=== PATIENT | male | born 1940 | race Caucasian/White ===

== ENCOUNTER 2019-07-28 14:46 | Outpatient (CLI) | payer MEDICARE, OTHER, SELFPAY | END 2019-07-28 14:47 | disposition home or self-care (01) | PROVIDERS: PCP Internal Medicine; Visit Provider Specialist | DX: C44.629 Squamous cell carcinoma of skin of left upper limb, including shoulder (principal) | CPT/HCPCS: 88305 ==

== ENCOUNTER 2020-11-22 09:14 | Outpatient (CLI) | payer MEDICARE, OTHER, SELFPAY | END 2020-11-22 09:15 | disposition home or self-care (01) | LOC: CHSLAB 09:20 | PROVIDERS: PCP Internal Medicine; Visit Provider Specialist | DX: L57.0 Actinic keratosis (principal) | CPT/HCPCS: 88305 ==

== ENCOUNTER → 2022-02-27 09:20 | Outpatient (CLI) | payer MEDICARE, OTHER, SELFPAY ==
--- NOTE | ~2022-02-27 | CT_ITS ---
EXAMINATION: CT shoulder LT wo con DATE: 02/27/2022 09:36 INDICATION: Left shoulder pain. TECHNIQUE: Computed tomography (CT) of the left shoulder was performed without intravenous contrast. Automated exposure control and iterative reconstruction technique were employed. The dose-length prod uct was 485.38 mGy-cm. COMPARISON: Left shoulder radiographs 02/19/2022 FINDINGS: Calcified left hilar lymph nodes are consistent with old granulomatous disease. There is po sterior subluxation of humeral head with respect to glenoid. No fracture. There is severe glenohumera l joint osteoarthritis including glenoid bone volume loss. There is a large glenohumeral joint effusi on with loose bodies. There is severe osteoarthritis of acromioclavicular joint. There is mild fatty atrophy of teres minor muscle belly, which may be seen with quadrilateral space syndrome. IMPRESSION: 1. Severe glenohumeral joint osteoarthritis. 2. Large glenohumeral joint effusion with loose bodies. 3. Severe acromioclavicular joint osteoarthritis. Reviewed, dictated and finalized at location E. . MEDIA MANAGER
== END ==
PROVIDERS: PCP Internal Medicine; Visit Provider Physician Assistant Medical
DX: M19.012 Primary osteoarthritis, left shoulder (principal); M25.412 Effusion, left shoulder; M24.012 Loose body in left shoulder
CPT/HCPCS: 73200

== ENCOUNTER 2022-03-27 10:17 | Inpatient (IN) | payer MEDICARE, OTHER, SELFPAY ==
[2022-03-27] VITALS (12 sets, daily range): BP systolic 102–225; BP diastolic 70–118; PULSE 71–102; RESP 13–20; TEMP 36.6–37.3; O2SAT 97–100; BMI 25.1
--- NOTE | ~2022-03-27 | XR_ITS ---
MODIFIED ESOPHAGRAM HISTORY: Difficulty swallowing TECHNIQUE: Modified barium esophagram was performed by speech pathologist under radiologist fluorosco pic guidance. This was recorded on tape. The exam was reviewed on 04/06/2022 09:16 VEGETABLE GRADER. The DAP for this procedure was 1.4 Gycm2. Fluoroscopy time is 1.9 minutes. FINDINGS: Lateral projection of the cervical spine demonstrates normal alignment. Normal swallowing function without penetration or aspiration. There is vallecular and piriform sinus residue.. IMPRESSION: 1: Normal swallowing function without evidence for penetration or aspiration. 2: Please refer to speech pathologist report for additional detail. Reviewed, dictated and finalized at location A. TABLE GRADER
--- NOTE | ~2022-03-27 | US_ITS ---
Procedure: Duplex Doppler examination of the bilateral carotids. Indication: Carotid bruit Technique: Real time, color-flow and pulse wave Doppler examination of the bilateral carotids was performed. Findings: Feliz scale ultrasonography of the right neck demonstrated scattered small to moderate plaques at the carotid bifurcation and proximal right internal carotid artery. There was demonstration of normal col or-flow and Doppler waveforms within the right common, internal and external carotid arteries. The pe ak systolic velocities in the right common, internal and external carotid arteries were demonstrated to be 43 cm/sec, 107 cm/sec and 512 cm/sec respectively. The right ICA/CCA ratio was 2.5.The proximal right internal carotid artery demonstrates 0% stenosis relative to the normal distal artery lumen di ameter. Feliz scale sonography of the left neck demonstrated small to moderate plaques at the proximal left in ternal carotid artery. There was demonstration of normal color-flow and wave forms within the left co mmon, internal and external carotid arteries. The peak systolic velocities in the left common, automotive internet sales consultant al and external carotid arteries were demonstrated to be 70cm/sec, 140 cm/sec and 315 cm/sec respecti vely. The left ICA/CCA ratio was 1.8. The proximal left internal carotid artery demonstrates 0% steno sis relative to the normal distal artery lumen diameter. There was antegrade flow demonstrated in the bilateral vertebral arteries. Impression: No hemodynamically significant stenosis of the bilateral internal carotid arteries. Antegrade flow in the bilateral vertebral arteries. Markedly elevated velocities of the bilateral external carotid arteries, consistent with high-grade s tenoses at their origins. Note: The methodology used is an indirect measurement validated against a direct method (such as the NASCET criteria) that compares diameters at the stenosis to the distal ICA. Reviewed, dictated and finalized at location M. ERCIAL HVAC SERVICE TECHNICIAN Impression: No hemodynamically significant stenosis of the bilateral internal carotid arter ies. Antegrade flow in the bilateral vertebral arteries. Markedly elevated velocities of the bilateral external carotid arteries, consis tent with high-grade stenoses at their origins. Note: The methodology used is an indirect measurement validated against a direct meth od (such as the NASCET criteria) that compares diameters at the stenosis to the distal ICA.
--- NOTE | ~2022-03-27 | XR_ITS ---
Portable chest x-ray Comparison: 06/07/2006 Clinical History: Confusion, altered mental status Findings: Lungs are clear, without focal consolidation or pleural effusion. Cardiomediastinal silho uette is stable. Bones and soft tissues are unremarkable. Impression: Clear lungs. Reviewed, dictated and finalized at location . AL COP Impression: Clear lungs.
--- NOTE | ~2022-03-27 | MR_ITS ---
EXAMINATION: MR cervical spine wo con DATE: 04/05/2022 17:12 INDICATION: Elevated protein in the CSF. Rule out tumor. TECHNIQUE: Magnetic resonance imaging (MRI) of the cervical spine was performed without intravenous c ontrast. Sequences included sagittal T2-weighted FSE, sagittal T2-weighted FS FSE, sagittal T1-weight ed FSE, axial MERGE and axial T2-weighted FSE. COMPARISON: None FINDINGS: Alignment of the normal cervical lordosis. 1-2 mm anterolisthesis C7 on T1. Vertebral body heights a re normal. Fibrofatty degenerative endplate changes at the inferior end plate of C5. Marrow signal is otherwise normal. Mild disc height loss at C4-C5 and C5-6 and moderate disc height loss at C6-C7 and C7-T1. Cord signal intensity is normal. Cervical soft tissues are unremarkable. The following disc l evels are specifically discussed: C2-C3: The disc does not extend beyond the endplate margin. There is no uncovertebral joint osteoarth ritis. There is mild left facet joint osteoarthritis. There is no neural foraminal stenosis. There is no central canal stenosis. C3-C4: Disc bulging and flattens the ventral surface of the cord. There is mild left and moderate rig ht uncovertebral joint osteoarthritis. There is mild right and severe left facet joint osteoarthritis . There is moderate left and mild to moderate right neural foraminal stenosis. There is mild central canal stenosis. C4-C5: Disc is bulging which indents the ventral surface of the cord. There is moderate left and lia re right uncovertebral joint osteoarthritis. There is moderate bilateral facet joint osteoarthritis. There is moderate bilateral neural foraminal stenosis. There is mild central canal stenosis. C5-C6: Disc is bulging which flattens the ventral surface of the cord. There is moderate left and sev ere right uncovertebral joint osteoarthritis. There is moderate right and severe left facet joint ost eoarthritis. There is moderate bilateral neural foraminal stenosis. There is mild central canal steno sis. C6-C7: Disc is bulging. There is moderate bilateral uncovertebral joint osteoarthritis. There is mild to moderate bilateral facet joint osteoarthritis. There is moderate to severe bilateral neural tio inal stenosis. There is mild central canal stenosis. C7-T1: Disc is bulging. There is mild right and moderate left uncovertebral joint osteoarthritis. The re is moderate right and severe left facet joint osteoarthritis. There is moderate right and severe l eft neural foraminal stenosis. There is mild central canal stenosis. IMPRESSION: 1. Moderate cervical spondylosis. No lesion suspicious for malignancy identified although sensitivity is lower on noncontrast imaging. Reviewed, dictated and finalized at location A. NG MACHINE ATTACHMENT TESTER IMPRESSION: 1. Moderate cervical spondylosis. No lesion suspicious for malignancy identifie d although sensitivity is lower on noncontrast imaging.
--- NOTE | ~2022-03-27 | XR_ITS ---
MODIFIED ESOPHAGRAM HISTORY: Difficulty swallowing. TECHNIQUE: Modified barium esophagram was performed by speech pathologist under radiologist fluorosco pic guidance. This was recorded on tape. The exam was reviewed on 03/31/2022 14:17 FORENSIC ECONOMIST. The DAP for this procedure was 0.99 Gycm2. Fluoroscopy time is 0.9 minutes. FINDINGS: Lateral projection of the cervical spine demonstrates normal alignment. Limited study. Re duced lingual movement. There is reduced laryngeal elevation and pharyngeal squeeze. There is residue in the vallecula, piriform sinus and pharyngeal wall. No penetration or aspiration is identified. IMPRESSION: 1: No evidence for laryngeal penetration or aspiration. Limited study. 2: Please refer to speech pathologist report for additional detail. Reviewed, dictated and finalized at location A. NSIC ECONOMIST
--- NOTE | ~2022-03-27 | MR_ITS ---
EXAMINATION: MR thoracic spine wo con DATE: 04/05/2022 17:13 INDICATION: Elevated protein in cerebral spinal fluid. TECHNIQUE: Magnetic resonance imaging (MRI) of the thoracic spine was performed without intravenous c ontrast. COMPARISON: None FINDINGS: There is 4 degrees levocurvature of thoracic spine. Vertebral body heights are normal. Ther e is mild to moderately decreased disc height at multiple levels. There is severely decreased disc he ight at T6-T7. There is multilevel facet joint osteoarthritis. There is multilevel mild neural forami nal stenosis bilaterally. On the right, there is moderate neural foraminal stenosis at T1-T2, T10-T11 , and T11-T12. On the left, there is moderate neural foraminal stenosis at T1-T2, T4-T5, T10-T11, and T11-T12. At T2-T3, there is a central protrusion with mild central canal stenosis. At T3-T4, there i s a right central protrusion with mild central canal stenosis. At T4-T5, there is a left central extr usion with mild central canal stenosis. At T5-T6, the disc is bulging with mild central canal stenosi s. At T6-T7, the disc is bulging with mild central canal stenosis. At T8-T9, the disc is bulging with mild central canal stenosis. At T10-T11, the disc is bulging with superimposed central extrusion wit h mild central canal stenosis. At T11-T12, the disc is bulging with mild central canal stenosis. The spinal cord signal intensity is normal, but motion artifact decreases sensitivity and specificity. IMPRESSION: 1. Severe thoracic spondylosis. Reviewed, dictated and finalized at location A. LOOP MAKER
--- NOTE | ~2022-03-27 | CT_ITS ---
EXAMINATION: CT chest abdomen pelvis wo con DATE: 03/30/2022 16:13 INSTRUMENT PROCESSING TECH INDICATION: Infection TECHNIQUE: Computed tomography (CT) of the chest, abdomen, and pelvis was performed without intraveno us contrast. The dose-length product was 1492.69 mGy-cm. Automated exposure control and iterative rec onstruction technique were employed. COMPARISON: CT chest dated 07/11/[address] abdomen dated 05/01/2018 FINDINGS: CHEST CT: No thoracic lymphadenopathy. Heart size normal. No significant pleural or pericardial effusion. There is mild atherosclerosis. Motion artifact limits evaluation for pulmonary nodules. There is dependent atelectasis. No endobronchial lesions. There is a 3 mm right upper lobe nodule, image 37, likely gilma ign. No pneumothorax. ABDOMEN/PELVIS CT: There is moderate thoracic spondylosis. There are severe lumbar spondylosis with complete loss of dis c space at L3-4 and L4-5 with severe loss of disc space at L2-3 and L5-S1. There is degenerative ante rolisthesis at L2-3. No focal lytic or blastic lesions. There is a Prater catheter in a decompressed bladder. Small amount of intraluminal gas in the bladder. Status post cholecystectomy. There is a 1.7 cm liver cyst, left hepatic lobe. There is a 7.3 cm left renal cyst. There is bilateral renal atrophy. The spleen, pancreas, adrenal glands are unremarkable. No hydronephrosis. Nonobstructive bowel gas pa ttern. Colonic diverticulosis without evidence for diverticulitis. No free air or free fluid. No abno rmal pelvic masses or fluid collections. No evidence for hernia. IMPRESSION: 1. Bibasilar dependent atelectasis. No focal consolidation to suggest pneumonia. 2: Right upper lobe nodule measuring 3 mm, likely benign. Consider follow-up low dose CT chest in 12 months. 3: No acute abdominal abnormality. Reviewed, dictated and finalized at location A. RUMENT PROCESSING TECH IMPRESSION: 1. Bibasilar dependent atelectasis. No focal consolidation to suggest pneumonia . 2: Right upper lobe nodule measuring 3 mm, likely benign. Consider follow-up l ow dose CT chest in 12 months. 3: No acute abdominal abnormality.
--- NOTE | ~2022-03-27 | US_ITS ---
Renal-Bladder ultrasound Clinical History: Renal failure Technique: Real-time sonographic imaging of the kidneys and urinary bladder was performed. Findings: The right kidney measures 9.8 cm in length and the left kidney measures 10.3 cm. There is n o hydronephrosis or renal calculus identified. Renal cortical echogenicity is within normal limits. L arge left upper pole simple renal cyst present. The urinary bladder is moderately distended at the time of this exam. No intraluminal echoes are iden tified. No abnormal wall thickening is seen. Impression: Large left upper pole renal cyst, otherwise unremarkable exam. Reviewed, dictated and finalized at location M. SCREENER Impression: Large left upper pole renal cyst, otherwise unremarkable exam.
--- NOTE | ~2022-03-27 | MR_ITS ---
EXAMINATION: MR brain/brain stem wo con DATE: 03/28/2022 13:58 INDICATION: Worsening altered mental status. TECHNIQUE: Magnetic resonance imaging (MRI) of the brain and brainstem was performed without intraven ous contrast. COMPARISON: Head CT 03/28/2022 FINDINGS: There are scattered areas of nonspecific increased T2-weighted signal intensity in the cere bral white matter and june. There is no intracranial hemorrhage, acute infarction, or abnormal intrac ranial mass lesion. The ventricles are normal in size. There are likely changes of ocular lens replac ement surgeries. The paranasal sinuses are clear. The mastoid air cells are normal. IMPRESSION: 1. Moderate nonspecific cerebral white matter disease and pontine disease, which likely represents ch ronic small vessel ischemic disease. Reviewed, dictated and finalized at location A. AL TECHNICAL WRITER IMPRESSION: 1. Moderate nonspecific cerebral white matter disease and pontine disease, whic h likely represents chronic small vessel ischemic disease.
--- NOTE | ~2022-03-27 | XR_ITS ---
XR chest PICC line 03/30/2022 19:01 Indication: PICC line placement Procedure: AP portable chest Comparison: 03/27/2022 Findings: Interval placement of right subclavian PICC line, tip in the SVC. Shallow inspiration. Biba silar airspace disease. Heart size normal. No significant effusion. No pneumothorax. There is osteoar thritis of the shoulders. Impression: 1: Bibasilar airspace disease may represent atelectasis or developing pneumonia. Reviewed, dictated and finalized at location A. APPLICATION SPECIALIST Impression: 1: Bibasilar airspace disease may represent atelectasis or developing pneumonia .
--- NOTE | ~2022-03-27 | CT_ITS ---
CT head without contrast Indication: Altered mental status COMPARISON: 03/27/2022 Technique: Serial scans were obtained through the brain without the administration of contrast. Dose reduction technique was used on this scan by utilizing automated exposure control and iterative recon struction technique. The dose-length product (DLP) was 681.00 mGy-cm. Findings: There is no evidence of intracranial hemorrhage, mass lesion, or acute infarct. The ventri cles and subarachnoid spaces are dilated, consistent with mild atrophy. Low attenuation regions are seen within the periventricular white matter bilaterally, likely representing changes from chronic mi crovascular ischemic disease. There is no evidence of edema, mass effect or midline shift. The visu alized paranasal sinuses and mastoid air cells are clear. Impression: No intracranial hemorrhage, mass, or acute infarct. Atrophy and chronic white matter changes, as above. Reviewed, dictated and finalized at [facility]. SORTER Impression: No intracranial hemorrhage, mass, or acute infarct. Atrophy and chronic white matter changes, as above.
--- NOTE | ~2022-03-27 | CT_ITS ---
EXAMINATION: CT brain wo con DATE: 03/27/2022 10:48 INDICATION: Confusion. Altered mental status. TECHNIQUE: Computed tomography (CT) of the head was performed without intravenous contrast. The mA wa s adjusted according to patient size. Iterative reconstruction technique was employed. The dose-lengt h product was 832.33 mGy-cm. COMPARISON: Head CT 04/11/2004 FINDINGS: There are scattered areas of low attenuation in the cerebral white matter. There is no intr acranial hemorrhage, acute infarction, or abnormal intracranial mass lesion. The ventricles are avtar l in size. There is minimal mucosal thickening in the paranasal sinuses. The mastoid air cells are no rmal. There are likely changes of ocular lens replacement surgeries. IMPRESSION: 1. Moderate nonspecific cerebral white matter disease, which likely represents chronic small vessel i schemic disease. Reviewed, dictated and finalized at location A. TRAINER MAINTENANCE MAN IMPRESSION: 1. Moderate nonspecific cerebral white matter disease, which likely represents chronic small vessel ischemic disease.
--- NOTE | ~2022-03-27 | XR_ITS ---
EXAMINATION: XR lumbar puncture diagnostic DATE: 03/28/2022 18:17 INDICATION: Altered mental status. TECHNIQUE: A timeout was performed to verify the patient's name, date of , and procedure to be performed. The skin overlying the L2-L3 level was prepped and draped in usual sterile fashion. Sub cutaneous 1% lidocaine was used for local anesthesia. A 20 gauge spinal needle was advanced under fl uoroscopic guidance. The needle was removed and the entry site was cleaned and dressed. There were n o immediate complications. Fluoroscopy exposure time was 0.1 minutes. The total number of images was 1. FINDINGS: Real-time fluoroscopy demonstrates the needle at the L2-L3 level. The opening pressure was 14 cm water (Normal range is variably defined as 6-20 cm water and up to 25 cm water in obese patient s. Pressure >25 cm water is one of the modified Dandy criteria for idiopathic intracranial hypertensi on). 12 mL of clear, colorless fluid was collected in 4 tubes. IMPRESSION: 1. Successful fluoro-guided lumbar puncture. Reviewed, dictated and finalized at location E. AL MANAGER
--- NOTE | ~2022-03-27 | US_ITS ---
EXAMINATION: US knee asp inj w image LT, US knee asp inj w image RT DATE: 04/02/2022 19:08 INDICATION: Bilateral knee joint effusions and pain TECHNIQUE: The procedure including the risks, benefits, and alternatives was discussed with the patie nt. Risks discussed included bleeding, infection and allergic reaction. The patient understood the ri sks and agreed to proceed. A timeout was performed to verify the patient's name, date of , an d procedure to be performed. Attention was first turned to the left knee joint. The skin overlying th e left knee joint was prepped and draped in usual sterile fashion. Anesthetic was administered with 1% lidocaine subcutaneously. An 18 gauge spinal needle was then advanced into the suprapatellar pouc h of the left knee joint under continuous sonographic guidance. Fluid was aspirated and sent to the l ab for studies as ordered by the referring physician. The entry site was cleaned and dressed. Attention was then turned to the right knee joint. The skin overlying the right knee joint was preppe d and draped in usual sterile fashion. Anesthetic was administered with 1% lidocaine subcutaneously. An 18 gauge spinal needle was then advanced into the suprapatellar pouch of the right knee joint un maynor continuous sonographic guidance. Fluid was aspirated and sent to the lab for studies as ordered b y the referring physician. The entry site was cleaned and dressed. There were no immediate complicat ions. FINDINGS: Ultrasound images demonstrate a large left knee joint effusion with needle advanced into the left kne e joint effusion. Subsequent images demonstrate a large right knee joint effusion with the needle adv anced into the right knee joint effusion. IMPRESSION: 1. Successful ultrasound-guided left knee joint aspiration yielding 75 mL of cloudy adele-colored fl uid. 2. Successful ultrasound-guided right knee joint aspiration yielding 80 mL of cloudy adele-colored fl uid. Reviewed, dictated and finalized at location A. INE GROUP LEADER IMPRESSION: 1. Successful ultrasound-guided left knee joint aspiration yielding 75 mL of c loudy adele-colored fluid. 2. Successful ultrasound-guided right knee joint aspiration yielding 80 mL of c loudy adele-colored fluid.
--- NOTE | ~2022-03-27 | XR_ITS ---
EXAM: XR knee RT 3V, XR knee LT 3V DATE: 04/01/2022 15:46 HISTORY: pain . COMPARISON: None available. FINDINGS: Normal mineralization. No fracture or dislocation. No lytic or blastic lesion. Bilateral m edial joint space narrowing. Tricompartmental osteophytosis, moderate in the bilateral patellofemoral compartments. Likely mild chondrocalcinosis. No erosion or periosteal change. Large bilateral knee j oint effusions, with calcified foci that may represent loose bodies. IMPRESSION: Moderate tricompartmental bilateral knee arthritis. Large bilateral knee joint effusions, with possible loose bodies. Reviewed, dictated and finalized at location K. GER WAREHOUSE IMPRESSION: Moderate tricompartmental bilateral knee arthritis. Large bilateral knee joint effusions, with possible loose bodies.
--- NOTE | 2022-03-27 10:35 | ECG_ITS ---
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
[2022-03-27 10:42] LABS: Glucose Point of Care 94 mg/dl (65-105)
--- NOTE | 2022-03-27 10:48 | PC.NURSE ---
Pt to CT scan via stretcher at this time.
[2022-03-27] MEDS: hydrALAZINE HCL 20 MG/ML VIAL 10 MG IV PUSH (10:52)
[2022-03-27 10:53] LABS: Basophils Absolute Auto 0.1 K/mm3 (0.0-0.1); Basophils Percent Auto 0.9 % (0.2-1.2); Eosinophils Absolute Auto 0.8 K/mm3 (0-0.3); Eosinophils Percent Auto 7.7 % (0-4.4); Hematocrit 41.4 % (42.0-52.0); Hemoglobin 13.7 g/dL (14.0-18.0); Immature Granulocyte Absolute 0.03 K/mm3 (0.00-0.031); Immature Granulocyte Percent A 0.3 % (0-0.5); Lymphocytes Percent Auto 26.2 % (18.3-44.2); Mean Corpuscular HGB Conc 33.1 g/dl (32-36); Mean Corpuscular Hemoglobin 30.9 pg (26-34); Mean Corpuscular Volume 93.2 fl (80-100); Mean Platelet Volume 10.6 fl (7.4-10.4); Monocytes Percent Auto 9.4 % (2.6-8.5); Neutrophils Absolute Auto 5.9 K/mm3 (1.3-6.7); Neutrophils Percent Auto 55.5 % (45.5-73.1); Platelet Count Result 269 k/mm3 (150-375); Red Blood Count 4.44 M/mm3 (4.6-6.20); Red Cell Distribution Width 12.2 % (11.5-14.5); White Blood Count 10.7 K/mm3 (4.5-10.0)
[2022-03-27 11:02] LABS: Alanine Aminotransferase 21 U/L (6-50); Albumin Level 4.3 g/dL (3.5-5.1); Alkaline Phosphatase 70 U/L (38-126); Anion Gap 10 mmol/L (8-16); Aspartate Amino Transferase 31 U/L (17-59); Bilirubin,Total 0.5 mg/dL (0.2-1.3); Blood Urea Nitrogen 22 mg/dL (9-20); Calcium 8.6 mg/dL (8.4-10.2); Carbon Dioxide 24 mmol/L (22-30); Chloride 110 mmol/L (98-107); Estimated CRCL calculation 35 ml/min; Estimated Glomerular Filt Rate 42; Glucose 101 mg/dL (65-110); Potassium 3.9 mmol/L (3.4-5.0); Sodium 144 mmol/L (137-145)
[2022-03-27 11:10] LABS: Prothrombin Time 12.8 Seconds (11.1-14.7)
[2022-03-27 11:11] LABS: Partial Thromboplastin Time 25.4 SECONDS (22.3-36.8)
[2022-03-27 11:17] LABS: Troponin I 0.048 ng/mL (0.000-0.034)
--- NOTE | 2022-03-27 12:36 | ED.NEUROSD ---
HPI - Neuro Symptoms/Deficit General Chief Complaint: Suspected CVA Stated Complaint: AMS last known normal 1.2 2100 Time Seen by Provider: 03/27/22 10:33 History of Present Illness HPI Narrative: Patient is an 81-year-old male who presents ER with altered mental status. woke up today to find her sitting in the living room with only his underwear arm which is atypical for him. He has been unable to answer questions for her. He reports headache. He is otherwise healthy and does not take any medications. reports she has not had any signs of illness recently. Related Data Allergies Allergy/AdvReac Type Severity Reaction Status Date / Time No Known Allergies Allergy Verified 03/27/22 15:34 Review of Systems Review of Systems: ROS unobtainable: Yes unobtainable due to mental status PMFSH Past Medical History Medical History (Updated 03/27/22 @ 19:18 by Kobi Beckwith MD) Carpal tunnel syndrome Cholecystectomy planned Surgical History Surgical History H/O removal of cyst On tailbone H/O repair of rotator cuff History of appendectomy Previous back surgery X4 Family History Family History Father Family history of pancreatic cancer, Onset Age: 70 Sibling Family history of coronary artery disease Social History Social History (Updated 02/19/22 @ 15:12 by Rhoda Mandujano) Smoking status: Never smoker Second hand tobacco smoke exposure: No Alcohol intake: never Substance use: never Substance use type: does not use Lack of Transportation: No Lack of Food: Never True Current Housing: I Have Housing Concerned About Future Housing: No Difficulty Paying Gas/Electric Bills: No Difficulty Paying for Meds: No Currently Unemployed: No Education: High School Diploma/GED Difficulty w/ Childcare or Family Care: No Gender identity (if verbalized by the patient): Male Spiritual care concerns: No Exam Narrative: GENERAL: Confused-appearing, well-nourished, and in no acute distress. HEAD: Normocephalic, atraumatic. EYES: PERRL and EOMI. ENT: Mucous membranes moist. CHEST: Clear to auscultation. No respiratory distress. HEART: Regular rate and rhythm. Normal peripheral pulses. ABDOMEN: Soft, nontender, nondistended. EXTREMITIES: Normal range of motion. No edema. SKIN: Warm, dry, no rash. NEURO: Alert and oriented x2. No upper or lower extremity drift. Normal finger-nose testing and [id number] testing. Facial symmetry noted. No slurred speech or expressive aphasia. Gross sensation intact. PSYCH: Normal mood and affect. Course Course Emergency Course: Family informed of results. Admit to hospitalist service. Will control elevated blood pressures with IV antihypertensives. We will also obtain MRI. Patient with only slight troponin leak, will trend. Vital Signs Vital signs: Vital Signs Temperature 97.9 F 03/27/22 10:23 Pulse Rate 76 03/27/22 10:23 Respiratory Rate 20 03/27/22 10:23 Blood Pressure 134/100 H 03/27/22 10:23 Pulse Oximetry 100 03/27/22 10:23 Oxygen Delivery Room Air 03/27/22 10:23 Temperature 99.1 F 03/27/22 16:00 Pulse Rate 97 03/27/22 18:00 Respiratory Rate 18 03/27/22 16:00 Blood Pressure 147/80 H 03/27/22 16:00 Pulse Oximetry 98 03/27/22 16:00 Oxygen Delivery Room Air 03/27/22 16:00 MDM - Neuro Symptoms/Deficit Lab Data 03/27/22 10:43 03/27/22 10:43 Labs: Lab Results 03/27/22 03/27/22 03/27/22 Range/Units 10:39 10:43 10:43 WBC 10.7 H (4.5-10.0) K/mm3 RBC 4.44 L (4.6-6.20) M/mm3 Hgb 13.7 L (14.0-18.0) g/dL Hct 41.4 L (42.0-52.0) % MCV 93.2 (80-100) fl MCH 30.9 (26-34) pg MCHC 33.1 (32-36) g/dl RDW 12.2 (11.5-14.5) % Plt Count 269 (150-375) k/mm3 MPV 10.6 H (7.4-10.4) fl Immat
[2022-03-27 14:52] LABS: Troponin I 0.044 ng/mL (0.000-0.034)
--- NOTE | 2022-03-27 15:56 | ADMGEN ---
This patient, Isreal Salazar, was admitted to IMU Room 201-01. Patient/family oriented to hospital policies and general routines including ID bracelet, bed and alarms, visiting hours, pain management, procedures, bathroom and other care routines, personal items, smoking policy, room service/diet, and visiting hours. Information on how to activate the Rapid Response Team has been discussed. Patient/Family are encouraged to report perceived risks to care and to ask questions if they do not understand what they are told or what they should do.
--- NOTE | 2022-03-27 20:00 | PM.IMHP ---
H&P: HPI History of Present Illness Date/Time: 03/27/22 20:00 Chief Complaint: Altered mental status. Narrative: This is an 81-year-old male without significant medical history who presented to the emergency department via private vehicle from home for evaluation of altered mental status. He is able to provide some history however his family members at bedside provide additional information, with the patient's permission. The patient remembers going to bed last night and according to his he was in his usual state of health. He got up this morning before his which is unusual and about 30 minutes thereafter the patient was found sitting on a couch in his underwear with head buried in his hands. This is unusual behavior for the patient and when she asked him if he was okay he reportedly said ?I do not know.? He then got up to the bathroom and he walked towards the back door instead of to the bathroom. With further questioning he has had some intermittent episodes of brief confusion the last month or so. For instance he called his and told her that he did not remember how to write a check. 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 A couple of days ago he reported that his vision was a little off but that cleared quickly and he may no mention of it thereafter. On arrival to the emergency department his blood pressure was 225/118; he has no known history of hypertension. He was given a dose of hydralazine 10 milligrams x 1 with a fairly drastic decline to 102/89. Since that time he has been pretty consistent in the 140s to [address] showed moderate nonspecific cerebral white matter disease; no acute findings were noted. He is being admitted in this setting for further workup. At the time my evaluation he is resting and has no specific complaints aside from a mild, generalized headache. He denies vertigo, auditory and visual changes, facial droop, difficulty speaking and swallowing, focal weakness, numbness, and tingling. No history of cardiac dysrhythmia. He denies sensations of racing heart and palpitations. He denies recent illnesses and denies fever, chills, sweats, neck ache, sinus congestion, sore throat, cough, nausea, vomiting, and diarrhea. Review of Systems Review of Systems: Negative except for as per HPI. [facility] Past Medical History Medical History (Updated 03/28/22 @ 13:59 by Jennifer Krause PA-C) Benign prostatic hyperplasia Gastroesophageal reflux disease Surgical History Surgical History (Updated 03/28/22 @ 13:58 by Jennifer Krause PA-C) History of appendectomy History of cholecystectomy History of excision of pilonidal cyst History of laser assisted in situ keratomileusis History of repair of right rotator cuff History of spinal surgery X4. Family History Family History Father Family history of pancreatic cancer, Onset Age: 70 Sibling Family history of coronary artery disease Social History Social History (Updated 03/28/22 @ 14:00 by Jennifer Krause PA-C) Social History: Surrogate medical decision maker: Julita Salazar, spouse. Code status: Full code. Smoking status: Never smoker Second hand tobacco smoke exposure: No Alcohol intake: never Substance use: never Substance use type: does not use Lack of Transportation: No Lack of Food: Never True Current Housing: I Have Housing Concerned About Future Housing: No Difficulty Paying Gas/Electric Bills: No Difficulty Paying for Meds: No Currently Unemployed: No Education: High School Diploma/GED Difficulty w/ Childcare or Family Care: No Additional living arrangements comments: Lives with spouse in [place]. Additional occupation/education comments: [employer]. Spiritual care concerns: No Meds Home Medications and Allergies Home Medications Medication Instructions Recor
[2022-03-27] MEDS: HYDROcodone/acetaminophen (*CRX) 5-325 MG TABLET 1 TAB PO (21:26)
[2022-03-28] VITALS (21 sets, daily range): BP systolic 98–223; BP diastolic 60–117; PULSE 74–120; RESP 16–25; TEMP 36.4–36.8; O2SAT 97–100
[2022-03-28] MEDS: HALOPERIDOL LACTATE 5 MG/ML VIAL IM (00:35)
--- NOTE | 2022-03-28 00:40 | ECHO_ITS ---
Patient Info Name: Isreal Salazar Age: 81 years : 1940 Gender: Male Ht: 72 in Wt: 185 lbs BSA: 2.07 m2 HR: 101 bpm BP: 167 / 105 mmHg Heart Rhythm: Sinus Rhythm, Tachycardia Exam Date: 03/28/2022 2:10 PM Exam Location: [facility] Patient Status: Outpatient Admit Date: 03/27/2022 Staff Ordering Physician: Jennifer Krause PA-C Journalism Professor: Joe Back RDCS, RT Attending Provider: Rhoda Finley PA-C Referring Physician: Nelida BENJAMIN; Exam Type: CA echo dop color flow w con Study Info Indications I10 - Essential (primary) hypertension - Encephalopathy Complete two-dimensional, color flow and Doppler transthoracic echocardiogram is performed with contrast to opacify the left ventricle and to improve the deliniation of the left ventricle endocardial borders. Summary 1. Technically difficult study with limited views. 2. Left ventricular chamber dimension is normal. 3. Left ventricular systolic function is hyperdynamic, estimated at >70%. 4. There is trace mitral valve regurgitation. 5. There is trace tricuspid valve regurgitation. Left Ventricle Left ventricular chamber dimension is normal. Left ventricular systolic function is hyperdynamic, estimated at >70%. Right Ventricle Right ventricular chamber dimension is normal. Left Atria Left atrial chamber dimension is normal. Right Atria Right atrial chamber dimension is not well visualized. Aortic Valve The aortic valve is not well visualized. There is no aortic valve regurgitation. There is mild aortic valve calcification. Pulmonic Valve The pulmonic valve is not well visualized. Mitral Valve There is trace mitral valve regurgitation. The mitral valve annulus is mildly calcified. Tricuspid Valve There is trace tricuspid valve regurgitation. Pericardium/Pleural There is no pericardial effusion. Inferior Vena Cava Normal inferior vena cava with >50% collapse upon inspiration consistent with normal right atrial pressure. Aorta The aortic root size at the sinus of Valsalva is not well visualized. Aortic Valve Name Value Normal AV Doppler AV Peak Velocity 196.19 cm/s AV Peak Gradient 15 mmHg AV Mean Gradient 9 mmHg AV VTI 29.12 cm Report Signatures
[2022-03-28] MEDS: LORazepam INJ (*CRX) 2 MG/ML VIAL 1 MG IV PUSH ×3 (01:21→13:28)
--- NOTE | 2022-03-28 01:21 | PC.NURSE ---
PATIENT ALERT TO SELF. PATIENT EXTREMELY AGITATED, CONFUSED. KEEPS TRYING TO CLIMB OVER THE RAILS, PATIENT WANTING TO LEAVE. PATIENT FIDDLING WITH LINEN. TURNING AROUND IN BED CONSTANTLY. PATIENT YELLING AND VERY ANGRY, STATING THAT WE ARE NOT DOING ANYTHING FOR HIM. BUT HE CAN'T REMEMBER WHERE HE IS OR WHAT YEAR IT IS.
[2022-03-28 05:17] LABS: Hematocrit 41.8 % (42.0-52.0); Hemoglobin 14.1 g/dL (14.0-18.0); Mean Corpuscular HGB Conc 33.7 g/dl (32-36); Mean Corpuscular Hemoglobin 31.1 pg (26-34); Mean Corpuscular Volume 92.3 fl (80-100); Mean Platelet Volume 10.5 fl (7.4-10.4); Platelet Count Result 257 k/mm3 (150-375); Red Blood Count 4.53 M/mm3 (4.6-6.20); Red Cell Distribution Width 12.1 % (11.5-14.5); White Blood Count 13.6 K/mm3 (4.5-10.0)
[2022-03-28 05:24] LABS: Ammonia < 9 umol/L (9-30)
[2022-03-28 05:26] LABS: Alanine Aminotransferase 22 U/L (6-50); Albumin Level 4.2 g/dL (3.5-5.1); Alkaline Phosphatase 74 U/L (38-126); Anion Gap 6 mmol/L (8-16); Aspartate Amino Transferase 47 U/L (17-59); Bilirubin,Total 0.9 mg/dL (0.2-1.3); Blood Urea Nitrogen 21 mg/dL (9-20); Calcium 8.9 mg/dL (8.4-10.2); Carbon Dioxide 28 mmol/L (22-30); Chloride 108 mmol/L (98-107); Cholesterol 206 mg/dL (0-200); Estimated CRCL calculation 38 ml/min; Estimated Glomerular Filt Rate 45; Glucose 107 mg/dL (65-110); HDL Direct 30 mg/dL; Potassium 3.8 mmol/L (3.4-5.0); Sodium 142 mmol/L (137-145); Triglycerides 326 mg/dL (<150)
[2022-03-28 05:39] LABS: LDL Cholesterol Direct 105 mg/dL
[2022-03-28 05:48] LABS: Iron 94 ug/dL (49-181); Percent Iron Saturation 32 % (20-50)
[2022-03-28 06:35] LABS: Folic Acid > 20.0 ng/mL (2.76->20)
[2022-03-28] MEDS: hydrALAZINE HCL 20 MG/ML VIAL 10 MG IV PUSH (08:22)
[2022-03-28] MEDS: ASPIRIN 81 MG ENTERIC TABLET PO (08:22)
--- NOTE | 2022-03-28 10:14 | WPDNEURCNPN ---
Assessment and Plan Assessment and plan (1) Encephalopathy: Code(s): G93.40 - Encephalopathy, unspecified Status: Acute (2) Elevated blood pressure reading: Code(s): R03.0 - Elevated blood-pressure reading, without diagnosis of hypertension Status: Acute (3) Elevated troponin: Code(s): R77.8 - Other specified abnormalities of plasma proteins Status: Acute (4) Renal failure: Code(s): N19 - Unspecified kidney failure Status: Acute Plan Mr Salazar is an 81 year old male with no significant past medical history presenting with altered mental status in the setting of hypertensive emergency. Differential for neurological causes include includes hypertensive encephalopathy such as posterior reversible encephalopathy syndrome (PRES) vs acute stroke vs occult infection (UTI, meningitis/encephalitis). Seizure seems less likely based on description of episodes. - Check UA for possible UTI - Obtain MRI brain w/wo contrast - he is quite agitated so will trial ativan and Haldol. If these don't work, he will likely need sedation with anesthesia -- if he will need sedation, suggest adding LP with routine CSF studies and HSV PCR CSF to evaluate for meningitis/encephalitis (assuming no other source of infectious is found and UA is unrevealing) Consult date: 03/28/22 Time Seen: 12:21 Reason for consult: Altered mental status HPI: Isreal Salazar is a 81 year old male with no significant past medical history presenting for evaluation of altered mental status. found patient on 03/27 in the morning, sitting on couch with just underwear on, holding his head in his hands. He appeared confused and was unable to answer questions other than with I don't know . He reported he had to go to the bathroom, but walked towards the backdoor rather than the bathroom. 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 Due to the new episode of confusion, patient was brought into [place] ED. In the ED his BP was elevated to 225/118. Labs were significant for mild troponemia and renal injury. He was given a dose of hydralazine for elevated BP. CT brain was negative for any acute process. UDS and UA were not checked. Patient did complain of a mild, holoacranial headache, but no other significant symptoms. Patient continues to remain agitated today. and daughter in law at bedside. At baseline is AOx4. 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 No history of tick bite as far as family knows. He does not have a history of frequent UTI. There have not been any reports of seizure-like activity. Review of Systems Review of Systems: ROS unobtainable: Yes unobtainable due to mental status PMFSH Past Medical History Medical History Carpal tunnel syndrome Cholecystectomy planned Surgical History Surgical History H/O removal of cyst On tailbone H/O repair of rotator cuff History of appendectomy Previous back surgery X4 Family History Family History Father Family history of pancreatic cancer, Onset Age: 70 Sibling Family history of coronary artery disease Social History Social History Smoking status: Never smoker Second hand tobacco smoke exposure: No Alcohol intake: never Substance use: never Substance use type: does not use Lack of Transportation: No Lack of Food: Never True Current Housing: I Have Housing Concerned About Future Housing: No Difficulty Paying Gas/Electric Bills: No Difficulty Paying for Meds: No Currently Unemployed: No Education: High School Diploma/GED Difficulty w/ Childcare or Family Care: No Gender identity
--- NOTE | 2022-03-28 10:55 | PM.IMPN ---
Progress Note: A&P Assessment and Plan (1) Encephalopathy: Code(s): G93.40 - Encephalopathy, unspecified Status: Acute Assessment and Plan: -comes in for AMS, no prior medical history. states he is normally A/O x 3 but has had a few fleeting moments of confusion over the past month -Differential diagnosis includes CVA, hypertensive encephalopathy, versus other. He gives no history to suggest an infection and there are no meningeal signs on exam. He has not had any recent falls or trauma. -on my evaluation today he is arousable but otherwise somnolent and not answering questions or following commands -- I am told this was an acute change so another stat CT brain was ordered which was negative for acute process. -Brain MRI, carotid Doppler ultrasounds, and echocardiogram ordered and pending. Will also add UA. -CTA of the head and neck unable to be done at this time given renal failure -neuro was consulted, recommendations appreciated -continue fall precautions and neuro checks (2) Hypertensive emergency: Code(s): I16.1 - Hypertensive emergency Status: Acute Assessment and Plan: -Blood pressure was quite elevated 225/118 on arrival and dropped precipitously with Hydralazine 10 mg yesterday -He was elevated at 190/91 this morning thus due to the standing prn order for Hydralazine, he was given another 10 mg. Several hours after getting the hydralazine he had an acute change in mental status as noted above. BP on my arrival was 112/62. Hydralazine has been discontinued at this time. Unclear whether the drop in BP this morning is the cause of his decreased mentation or not. For now will allow permissive HTN and continue to trend blood pressures. Cardiology was also consulted for further recommendations due to him having no prior hx of HTN. (3) Renal failure: Code(s): N19 - Unspecified kidney failure Status: Acute Assessment and Plan: -creat 1.6 on arrival. Unclear if this is new or not. Per he does not have hx of CKD. -he does not appear dry and bladder does not appear distended on exam -renal ultrasound has been ordered and is pending -continue to monitor his ins and outs closely -consider nephrology consult (4) Elevated troponin: Code(s): R77.8 - Other specified abnormalities of plasma proteins Status: Acute Assessment and Plan: -trop mildly elevated on arrival but flat -repeat trop was ordered when pt had acute change in mentation today, this is pending -cardiology consulted as above Subjective Date/time seen: 03/28/22 10:55 Interval history: 81 yo male w/ no reported prior medical hx admitted for AMS. Pt was A/O x 0 and somnolent during my evaluation. He would open his eyes but not answer questions or follow commands. Per RN and patient's at bedside, he is more altered currently than he was this morning. Apparently this morning he would answer some questions and ate breakfast without difficulty. Further hx limited secondary to mental status. Review of Systems Review of Systems: All systems reviewed & are unremarkable except as noted in HPI and below Exam Narrative: General: No acute distress, non toxic appearing, elderly, somnolent but arousable Eyes: PERRL, no scleral icterus HEENT: NCAT, external ears normal, dry mucous membranes Respiratory: No respiratory distress, Lungs CTA bilaterally, no wheezing Cardiovascular: RRR, no murmur Abdominal: Soft, nontender, non distended, no rebound or guarding Musculoskeletal: No edema Neurological: A/Ox0, no facial asymmetry, arousable but will not answer questions or follow commands Skin: Warm, dry, no rashes Psychiatric: Confused Objective Data Vital Signs Vital Signs: Vital Signs - 24 hr 03/27/22 11:04 03/27/22 11:05 03/27/22 13:12 Temperature Pulse Rate 73 75 76 Respiratory Rate 15 20 Blood Pressure 197/90 H 151/74 H Pulse Oxime
[2022-03-28 11:20] LABS: Basophils Absolute Auto 0.1 K/mm3 (0.0-0.1); Basophils Percent Auto 0.4 % (0.2-1.2); Eosinophils Absolute Auto 0.1 K/mm3 (0-0.3); Eosinophils Percent Auto 0.9 % (0-4.4); Hematocrit 40.2 % (42.0-52.0); Hemoglobin 13.7 g/dL (14.0-18.0); Immature Granulocyte Absolute 0.04 K/mm3 (0.00-0.031); Immature Granulocyte Percent A 0.3 % (0-0.5); Lymphocytes Absolute Auto 1.77 K/mm3 (0.9-3.2); Lymphocytes Percent Auto 14.6 % (18.3-44.2); Mean Corpuscular HGB Conc 34.1 g/dl (32-36); Mean Corpuscular Hemoglobin 31.1 pg (26-34); Mean Corpuscular Volume 91.4 fl (80-100); Mean Platelet Volume 10.5 fl (7.4-10.4); Monocytes Absolute Auto 1.2 K/mm3 (0.1-0.6); Monocytes Percent Auto 10.2 % (2.6-8.5); Neutrophils Absolute Auto 8.9 K/mm3 (1.3-6.7); Neutrophils Percent Auto 73.6 % (45.5-73.1); Platelet Count Result 253 k/mm3 (150-375); White Blood Count 12.1 K/mm3 (4.5-10.0)
[2022-03-28 11:25] LABS: Alanine Aminotransferase 23 U/L (6-50); Alkaline Phosphatase 67 U/L (38-126); Anion Gap 5 mmol/L (8-16); Aspartate Amino Transferase 46 U/L (17-59); Bilirubin,Total 0.7 mg/dL (0.2-1.3); Blood Urea Nitrogen 21 mg/dL (9-20); Calcium 8.8 mg/dL (8.4-10.2); Carbon Dioxide 28 mmol/L (22-30); Chloride 104 mmol/L (98-107); Estimated CRCL calculation 33 ml/min; Estimated Glomerular Filt Rate 39; Glucose 138 mg/dL (65-110); Potassium 3.9 mmol/L (3.4-5.0); Sodium 137 mmol/L (137-145)
[2022-03-28 11:44] LABS: Troponin I 0.165 ng/mL (0.000-0.034)
--- NOTE | 2022-03-28 11:47 | ECG_ITS ---
Measurements Intervals [place] Rate: 84 P: 54 WI: 227 QRS: -43 QRSD: 99 T: 69 QT: 366 QTc: 433 Interpretive Statements SINUS RHYTHM WITH SINUS ARRHYTHMIA WITH FIRST DEGREE AV BLOCK LEFT AXIS DEVIATION DELAYED PRECORDIAL R/S TRANSITION LEFT VENTRICULAR HYPERTROPHY AND ST-T CHANGE BORDERLINE ECG COMPARED TO ECG 03/27/2022 10:37:53 SINUS ARRHYTHMIA NOW PRESENT Electronically Signed On 03-28-2022 12:52:05 APPLICATION PERFORMANCE ENGINEER by Zaki Basilio D.O.
--- NOTE | 2022-03-28 11:51 | ECG_ITS ---
Measurements Intervals [place] Rate: 91 P: 41 WI: 208 QRS: -43 QRSD: 85 T: 71 QT: 366 QTc: 451 Interpretive Statements SINUS RHYTHM POSSIBLE LEFT ATRIAL ENLARGEMENT LEFT VENTRICULAR HYPERTROPHY AND ST-T CHANGE POOR R WAVE PROGRESSION, ANTERIOR LEADS BORDERLINE ECG COMPARED TO ECG 03/28/2022 11:53:58 NO SIGNIFICANT CHANGES Electronically Signed On 03-28-2022 12:52:40 BOMB SQUAD OFFICER by Zaki Basilio D.O.
[2022-03-28 12:36] LABS: Add Urine Microscopic? YES; Appearance Urine Clear (Clear); Bilirubin Urine Negative (Negative); Blood Urine 1+ (Negative); Color Urine Yellow (Yellow); Glucose Urine UA Negative (Negative); Ketones Urine Negative (Negative); Leukocyte Esterase Ur Negative LEU/UL (Negative); Nitrate Urine Negative (Negative); Protein Urine Negative (Negative); Specific Grav Ur 1.015 (1.001-1.035); Urobilinogen Urine 0.2 mg/dL (<2.0)
[2022-03-28 12:47] LABS: Mucus Urine Rare /lpf; RBC Urine 21-50 /hpf (0-2); WBC Urine 0-3 /hpf
--- NOTE | 2022-03-28 13:11 | PM.CNCAR ---
Assessment and Plan Assessment and plan (1) Hypertensive emergency: Code(s): I16.1 - Hypertensive emergency Status: Acute (2) Elevated troponin: Code(s): R77.8 - Other specified abnormalities of plasma proteins Status: Acute Plan Troponins are mildly elevated in the setting of altered mental status and hypertensive emergency. ECG is without ischemic changes. At this time, no indication of ischemia. An echo has been ordered and is pending, will follow up on the results. Currently, given concern for stroke, permissive hypertension is being allowed. Once permissive hypertension is no longer needed, would start oral agents for control of his blood pressure. First line treatment for hypertension is usually CCB (Amlodipine), ACEi/ARB, thiazide diuretic. Patient had a precipitous drop with IV Hydralazine. Would avoid IV Hydralazine. History of Present Illness History of Present Illness Consult date/time: 03/28/22 13:11 Requesting physician: Rhoda Finley PA-C Consult reason: hypertension Reason For Visit: AMS,HYPERTENSIVE ENCEPHALOPATHY,ELEVATED TROPONIN Narrative: We are being consulted for hypertension. This is an 81-year-old male with no significant past medical history who presented to the ER for evaluation of altered mental status. Cannot obtain history from the patient, therefore, history obtained from family and the patient's chart. Patient was found at home mentally altered, was sitting on the couch in his underwear only (which he does not normally do). He seemed disoriented. Patient was noted to have BP of 225/118 on arrival to the ED. CT negative. Neurology has been consulted and an MRI is pending to evaluate for stroke. Per his prior records, patient was evaluated by a rig builder at the [facility] in [facility] back in 2019 for dyspnea. Cardiac workup at that time, including stress testing, was normal. No evidence of ischemia. No clear cardiac reason to explain his symptoms at that time. Family states patient does not have issues with high blood pressure at home and state his BP at home is usually in the 110SBP. Review of Systems Review of Systems: ROS unobtainable: Yes unobtainable due to medical condition and unobtainable due to mental status PMFSH Past Medical History Medical History Carpal tunnel syndrome Cholecystectomy planned Surgical History Surgical History H/O removal of cyst On tailbone H/O repair of rotator cuff History of appendectomy Previous back surgery X4 Family History Family History Father Family history of pancreatic cancer, Onset Age: 70 Sibling Family history of coronary artery disease Social History Social History Smoking status: Never smoker Second hand tobacco smoke exposure: No Alcohol intake: never Substance use: never Substance use type: does not use Lack of Transportation: No Lack of Food: Never True Current Housing: I Have Housing Concerned About Future Housing: No Difficulty Paying Gas/Electric Bills: No Difficulty Paying for Meds: No Currently Unemployed: No Education: High School Diploma/GED Difficulty w/ Childcare or Family Care: No Gender identity (if verbalized by the patient): Male Spiritual care concerns: No Meds Home Medications and Allergies Home Medications Medication Instructions Recorded Confirmed Type finasteride 1 mg tablet (Propecia) 1 mg PO DAILY #90 tabs 12/25/21 03/27/22 Rx Allergies Allergy/AdvReac Type Severity Reaction Status Date / Time No Known Allergies Allergy Verified 03/27/22 15:34 Vital Signs Vital Signs - 24 hr 03/27/22 13:12 03/27/22 14:13 03/27/22 16:00 Temperature 36.6 C Pulse Rate 76 76 102 H Respiratory Rate 20 13 Blood
[2022-03-28 15:46] LABS: Glucose Point of Care 130 mg/dl (65-105)
[2022-03-28 18:42] LABS: Glucose CSF 69 mg/dL (40-70); Total Protein CSF 158 mg/dL (12-60)
[2022-03-28] MEDS: METOPROLOL TARTRATE INJ 5 MG/5 ML VIAL IV PUSH (18:48)
[2022-03-28 19:23] LABS: Appearance CSF Clear (Clear); CSF source CSF; Color CSF Colorless (Colorless); Lymphocytes CSF 74 % (40-80); Monocytes CSF 21 % (15-45); Neutrophils CSF 5 % (0-6); Nucleated Cell CSF 3 /uL (0-5); Red Blood Cell CSF 82 (0-2)
[2022-03-28] MEDS: cefTRIAXone 2 GM in SODIUM CHLORIDE 0.9% IV 100 ML 200 ML IVPB (23:34)
[2022-03-28] MEDS: ACYCLOVIR SODIUM IVPB 800 MG in DEXTROSE 5% IN WATER 250 ML 266 MG IVPB (23:34)
[2022-03-29] VITALS (15 sets, daily range): BP systolic 104–146; BP diastolic 61–80; PULSE 72–99; RESP 18–24; TEMP 36.3–37.2; O2SAT 95–100
[2022-03-29] MEDS: AMPICILLIN 2 GM/NS 100 ML 2 GM/100 ML BAG IVPB ×4 (01:45→19:55)
[2022-03-29 05:11] LABS: Basophils Percent Auto 0.1 % (0.2-1.2); Hematocrit 41.7 % (42.0-52.0); Immature Granulocyte Absolute 0.06 K/mm3 (0.00-0.031); Immature Granulocyte Percent A 0.4 % (0-0.5); Lymphocytes Absolute Auto 1.06 K/mm3 (0.9-3.2); Lymphocytes Percent Auto 7.4 % (18.3-44.2); Mean Corpuscular HGB Conc 33.6 g/dl (32-36); Mean Corpuscular Hemoglobin 30.8 pg (26-34); Mean Corpuscular Volume 91.9 fl (80-100); Mean Platelet Volume 10.7 fl (7.4-10.4); Monocytes Absolute Auto 0.2 K/mm3 (0.1-0.6); Monocytes Percent Auto 1.2 % (2.6-8.5); Neutrophils Absolute Auto 12.9 K/mm3 (1.3-6.7); Neutrophils Percent Auto 90.9 % (45.5-73.1); Platelet Count Result 262 k/mm3 (150-375); Red Blood Count 4.54 M/mm3 (4.6-6.20); Red Cell Distribution Width 11.9 % (11.5-14.5); White Blood Count 14.2 K/mm3 (4.5-10.0)
[2022-03-29 05:38] LABS: Anion Gap 9 mmol/L (8-16); Blood Urea Nitrogen 28 mg/dL (9-20); Calcium 8.6 mg/dL (8.4-10.2); Carbon Dioxide 25 mmol/L (22-30); Chloride 104 mmol/L (98-107); Estimated CRCL calculation 35 ml/min; Estimated Glomerular Filt Rate 42; Glucose 161 mg/dL (65-110); Potassium 4.3 mmol/L (3.4-5.0); Sodium 138 mmol/L (137-145)
--- NOTE | 2022-03-29 07:50 | PM.IMPN ---
Progress Note: A&P Assessment and Plan (1) Elevated blood pressure reading: Code(s): R03.0 - Elevated blood-pressure reading, without diagnosis of hypertension Status: Acute (2) Encephalopathy: Code(s): G93.40 - Encephalopathy, unspecified Status: Acute Assessment and Plan: -comes in for AMS, no prior medical history. states he is normally A/O x 3 but has had a few fleeting moments of confusion over the past month He has not had any recent falls or trauma. head ct negative x 2. MRI brain negative for any acute stroke. carotid doppler: no hemodynamically significant stenosis LP: 03/28/2022: neg for infection, had some RBCs. other panel negative.opening pressure 14 cm water normal, clear colorless fluid collected.on empiric ceftraixone, acyclovir, vcancomycin and ampicillin. csf with rate wbc, no organisms. awit viral studies. -CTA of the head and neck unable to be done at this time given renal failure -neuro was consulted, recommendations appreciated -continue fall precautions and neuro checks ua neg for infection however has rbcs CXR negative hyeprtensive extremely upon presentation?hypertensive encephalopathy (3) Carotid bruit: Code(s): R09.89 - Other specified symptoms and signs involving the circulatory and respiratory systems Status: Acute Assessment and Plan: carotid doppler with no hemodyanmically significant stenosis (4) Elevated troponin: Code(s): R77.8 - Other specified abnormalities of plasma proteins Status: Acute Assessment and Plan: -trop mildly elevated on arrival but flat -repeat trop was ordered when pt had acute change in mentation today, this is pending -cardiology consulted as above echo ef >70%, no signiciant valvular abnormlaity (5) Renal failure: Code(s): N19 - Unspecified kidney failure Status: Acute Assessment and Plan: -creat 1.6 on arrival. creatinien reamins stable. renal us negative for hydronephrosis has ckd stage III Subjective Date/time seen: 03/29/22 07:50 Interval history: 81 yo male w/ no reported prior medical hx admitted for AMS. no ovenright events reported. he slept through the night, he is more awake and alert and oriented today. son at bedside and discussed witht him. Review of Systems Review of Systems: All systems reviewed & are unremarkable except as noted in HPI and below Exam Narrative: General: No acute distress, non toxic appearing, elderly, alert and awake, oriented to place and person Eyes: PERRL, no scleral icterus HEENT: NCAT, external ears normal, dry mucous membranes Respiratory: No respiratory distress, Lungs CTA bilaterally, no wheezing Cardiovascular: RRR, no murmur Abdominal: Soft, nontender, non distended, no rebound or guarding Musculoskeletal: No edema cyanosis or clubbing Neurological: A/O x 2, no facial asymmetry, alert awake and following commands Skin: Warm, dry, no rashes Psychiatric: cooperative Objective Data Vital Signs Vital Signs: Vital Signs - 24 hr 03/28/22 08:58 03/28/22 10:03 03/28/22 11:55 Temperature Pulse Rate 87 Respiratory Rate 22 H Blood Pressure 112/62 137/65 179/83 H Pulse Oximetry 99 Oxygen Delivery 03/28/22 08:00 03/28/22 12:00 03/28/22 08:00 Temperature Pulse Rate 102 H Respiratory Rate Blood Pressure Pulse Oximetry Oxygen Delivery Room Air Room Air 03/28/22 12:00 03/28/22 14:00 03/28/22 10:00 Temperature Pulse Rate 99 106 H 96 Respiratory Rate Blood Pressure Pulse Oximetry Oxygen Delivery 03/28/22 16:00 03/28/22 16:10 03/28/22 18:07 Temperature 98.1 F Pulse Rate 114 H 117 H Respiratory Rate 20 25 H Blood Pressure 181/105 H 197/107 H 223/117 H Pulse Oximetry 99 98 Oxygen Delivery 03/28/22 18:08 03/28/22 16:00 03/28/22 18:00 Temperature Pulse Rate 120 H 108 H 87 Respiratory Rate 24 H Blood Pressure 194/10
[2022-03-29] MEDS: ASPIRIN 81 MG ENTERIC TABLET PO (08:57)
[2022-03-29] MEDS: amLODIPine BESYLATE 5 MG TABLET PO (08:57)
--- NOTE | 2022-03-29 09:22 | WPDNEUROPN ---
Progress Note: A&P Assessment and Plan (1) Encephalopathy: Code(s): G93.40 - Encephalopathy, unspecified Status: Acute (2) Hypertensive emergency: Code(s): I16.1 - Hypertensive emergency Status: Acute (3) Elevated troponin: Code(s): R77.8 - Other specified abnormalities of plasma proteins Status: Acute Plan Mr Salazar is an 81 year old male with no significant past medical history presenting with altered mental status in the setting of hypertensive emergency. MRI was negative for acute stroke and PRES. LP was positive only for elevated protein (158), which is non-specific and could be an early marker for inflammatory process or related to elevated BP. Primary differential for neurological causes at this point include includes hypertensive encephalopathy vs occult infection such as meningitis/encephalitis (WBC elevated today without clear source?). Mental status has improved in the past day. - Currently being treated with antibiotics and acyclovir for meningitic/encephalitic coverage, continue until cultures return - If mental status declines, will send autoimmune encephalitis panel and possibly 14-3-3/RT-QuIC Subjective Date/time seen: 03/29/22 09:22 Interval history: Isreal Salazar is a 81 year old male with no significant past medical history presenting for evaluation of altered mental status. found patient on 03/27 in the morning, sitting on couch with just underwear on, holding his head in his hands. He appeared confused and was unable to answer questions other than with I don't know . He reported he had to go to the bathroom, but walked towards the backdoor rather than the bathroom. 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 Due to the new episode of confusion, patient was brought into [facility] ED. In the ED his BP was elevated to 225/118. Labs were significant for mild troponemia and renal injury. He was given a dose of hydralazine for elevated BP. CT brain was negative for any acute process. UDS and UA were not checked. Patient did complain of a mild, holoacranial headache, but no other significant symptoms. Patient continues to remain agitated today. and daughter in law at bedside. At baseline is AOx4. 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 No history of tick bite as far as family knows. He does not have a history of frequent UTI. There have not been any reports of seizure-like activity. MRI brain done yesterday, unfortunately could not get with contrast due to renal failure. MRI brain was negative for stroke and essentially normal. LP was also done. Cell count 3 and protein elevated to 158. Gram stain showed light WBC and RBC but no organisms. Other infectious CSF studies pending. Patient is better today per family, but still not at baseline. Patient did express that he felt that the TV in his room was coming towards him. Review of Systems Review of Systems: ROS unobtainable: Yes unobtainable due to mental status Exam Const: General: comfortable and no acute distress HENMT: Mouth: Yes moist mucous membranes Eyes: Pupils: Equal, round and reactive pupils present EOM: EOMs intact bilaterally Resp: Effort & Inspection: normal respiratory effort Auscultation: clear to auscultation bilaterally Cardio: Rate: regular rate Rhythm: regular rhythm GI: GI Palp: Yes Soft to palpation Auscultation: normal bowel sounds Skin: General skin exam: normal color Neuro: Other: AOx2 (person and place), following commands, but somnolent at times, pupils equal and reactive bilaterally, EOMI, face symmetric, . Strength 5/5 throughout. Sensation intact throughout, FNF normal bilaterally. Dysarthric speech, but language comprehension and fluency intact. Gait deferred. Extrem: General: normal to inspection Psych: Thought content: Yes Hallucinati
--- NOTE | 2022-03-29 10:05 | PM.PNCARD ---
Progress Note: A&P Assessment and Plan (1) Hypertensive emergency: Code(s): I16.1 - Hypertensive emergency Status: Acute (2) Elevated troponin: Code(s): R77.8 - Other specified abnormalities of plasma proteins Status: Acute Plan Troponins elevated in the setting of marked hypertension. No ischemic EKG changes. No indication for ischemia workup. Echo showed hyperdynamic LVSF, EF >70%. No significant valvular abnormalities. BP better controlled today on amlodipine, PRN clonidine. Cardiology will sign off. Please do not hesitate to contact us with any further quetions. Subjective Date/time seen: 03/29/22 10:05 Cardiology follow up for hypertension Alert and oriented this morning. BP is better controlled. No complaints. Review of Systems Review of Systems: ROS unobtainable: Yes unobtainable due to medical condition and unobtainable due to mental status Exam Const: General: no acute distress HENMT: Mouth: Yes moist mucous membranes Eyes: General: appearance normal, both eyes and all related structures Neck: Neck: supple Resp: Effort & Inspection: normal respiratory effort Auscultation: clear to auscultation bilaterally Cardio: Rate: regular rate Rhythm: regular rhythm Heart sounds: Murmur heart sound present systolic Skin: General skin exam: normal color Extrem: General: no edema Psych: Appearance: grossly normal Mental Status: mental status grossly normal Objective Data Vital Signs Vital Signs: Vital Signs - 24 hr 03/28/22 11:55 03/28/22 12:00 03/28/22 12:00 Temperature Pulse Rate 87 99 Respiratory Rate 22 H Blood Pressure 179/83 H Pulse Oximetry 99 Oxygen Delivery Room Air 03/28/22 14:00 03/28/22 16:00 03/28/22 16:10 Temperature 36.7 C Pulse Rate 106 H 114 H Respiratory Rate 20 Blood Pressure 181/105 H 197/107 H Pulse Oximetry 99 Oxygen Delivery 03/28/22 18:07 03/28/22 18:08 03/28/22 16:00 Temperature Pulse Rate 117 H 120 H 108 H Respiratory Rate 25 H 24 H Blood Pressure 223/117 H 194/106 H Pulse Oximetry 98 98 Oxygen Delivery 03/28/22 18:00 03/28/22 16:00 03/28/22 20:00 Temperature 36.8 C Pulse Rate 87 97 Respiratory Rate 18 Blood Pressure 186/83 H Pulse Oximetry 100 Oxygen Delivery Room Air 03/28/22 20:00 03/28/22 20:00 03/28/22 22:00 Temperature Pulse Rate 97 100 103 H Respiratory Rate 18 Blood Pressure Pulse Oximetry 100 Oxygen Delivery Room Air 03/28/22 23:19 03/29/22 00:00 03/29/22 00:00 Temperature 36.6 C Pulse Rate 100 93 93 Respiratory Rate 18 18 Blood Pressure 98/60 L Pulse Oximetry 100 100 Oxygen Delivery Room Air 03/29/22 02:00 03/29/22 04:00 03/29/22 04:00 Temperature Pulse Rate 91 83 83 Respiratory Rate 18 Blood Pressure Pulse Oximetry 100 Oxygen Delivery Room Air 03/29/22 04:00 03/29/22 06:00 03/29/22 08:00 Temperature 37.2 C 36.6 C Pulse Rate 87 82 81 Respiratory Rate 18 18 Blood Pressure 146/69 H 137/80 Pulse Oximetry 99 95 Oxygen Delivery Intake/Output Intake/Output: Intake & Output 03/26/22 03/27/22 03/28/22 03/29/22 23:59 23:59 23:59 23:59 Intake Total 100 630 836 Output Total 600 1000 500 Balance -500 -370 336 Meds/Results Medications: Active Medications Generic Name Dose Route Start Last Admin Trade Name Freq PRN Reason Stop Dose Admin Acetaminophen 650 mg 03/27/22 12:54 Acetaminophen 325 Mg Tablet PO Q4H PRN Mild Pain (1-3) or Fever Hydrocodone Bitart/Acetaminophen 1 tab 03/27/22 12:54 03/27/22 21:26 Hydrocodone/Acetaminophen (*Crx) 5-325 Mg Tablet PO 1 tab Q4H PRN Administration Pain Rated 4-6 Amlodipine Besylate 5 mg 03/28/22 16:25 03/29/22 08:57 Amlodipine Besylate 5 Mg Tablet PO 5 mg QAM PANFILO Administration Aspirin 81 mg 03/28/22 09:00 03/29/22 08:57 Aspirin 81 Mg Enteric Tablet PO 81 mg QAM PANFILO Administration
[2022-03-29] MEDS: ACYCLOVIR SODIUM IVPB 800 MG in DEXTROSE 5% IN WATER 250 ML 266 MG IVPB (12:05)
[2022-03-29] MEDS: cefTRIAXone 2 GM in SODIUM CHLORIDE 0.9% IV 100 ML 200 ML IVPB (12:05)
[2022-03-30] VITALS (12 sets, daily range): BP systolic 129–157; BP diastolic 72–91; PULSE 75–138; RESP 16–20; TEMP 36–36.5; O2SAT 96–100
[2022-03-30] MEDS: cefTRIAXone 2 GM in SODIUM CHLORIDE 0.9% IV 100 ML 200 ML IVPB ×2 (00:51→13:30)
[2022-03-30] MEDS: ACYCLOVIR SODIUM IVPB 800 MG in DEXTROSE 5% IN WATER 250 ML 266 MG IVPB ×2 (01:18→13:30)
[2022-03-30] MEDS: AMPICILLIN 2 GM/NS 100 ML 2 GM/100 ML BAG IVPB ×4 (02:28→21:56)
--- NOTE | 2022-03-30 03:42 | PC.NURSE ---
Pt hallucinating there is a kid in his room trying to find his mom then that there was a man in his room trying to hurt him. After asking the pt, he thought he was in a tavern and that this RN was trying to fight him. He verbalized that he was going to hit this RN. Other nursing staff came to the bedside and successfully deescalated the situation. This RN has continuously been at the bedside since 214 reorienting the pt and making sure he does not pull his IV or catheter which he tries to do constantly.
[2022-03-30 05:32] LABS: Basophils Percent Auto 0.2 % (0.2-1.2); Eosinophils Absolute Auto 0.1 K/mm3 (0-0.3); Eosinophils Percent Auto 0.2 % (0-4.4); Hematocrit 38.8 % (42.0-52.0); Hemoglobin 12.9 g/dL (14.0-18.0); Immature Granulocyte Absolute 0.14 K/mm3 (0.00-0.031); Immature Granulocyte Percent A 0.7 % (0-0.5); Lymphocytes Percent Auto 11.9 % (18.3-44.2); Mean Corpuscular HGB Conc 33.2 g/dl (32-36); Mean Corpuscular Hemoglobin 30.5 pg (26-34); Mean Corpuscular Volume 91.7 fl (80-100); Mean Platelet Volume 10.9 fl (7.4-10.4); Monocytes Absolute Auto 2.6 K/mm3 (0.1-0.6); Monocytes Percent Auto 12.3 % (2.6-8.5); Neutrophils Absolute Auto 15.8 K/mm3 (1.3-6.7); Neutrophils Percent Auto 74.7 % (45.5-73.1); Platelet Count Result 263 k/mm3 (150-375); Red Blood Count 4.23 M/mm3 (4.6-6.20); Red Cell Distribution Width 11.9 % (11.5-14.5); White Blood Count 21.1 K/mm3 (4.5-10.0)
[2022-03-30 05:56] LABS: Alanine Aminotransferase 35 U/L (6-50); Albumin Level 3.8 g/dL (3.5-5.1); Alkaline Phosphatase 64 U/L (38-126); Anion Gap 10 mmol/L (8-16); Aspartate Amino Transferase 72 U/L (17-59); Bilirubin,Total 0.3 mg/dL (0.2-1.3); Blood Urea Nitrogen 39 mg/dL (9-20); Calcium 8.2 mg/dL (8.4-10.2); Carbon Dioxide 23 mmol/L (22-30); Chloride 106 mmol/L (98-107); Estimated CRCL calculation 32 ml/min; Estimated Glomerular Filt Rate 36; Glucose 122 mg/dL (65-110); Potassium 3.5 mmol/L (3.4-5.0); Sodium 139 mmol/L (137-145)
--- NOTE | 2022-03-30 09:14 | WPDNEUROPN ---
Progress Note: A&P Assessment and Plan (1) Encephalopathy: Code(s): G93.40 - Encephalopathy, unspecified Status: Acute (2) Hypertensive emergency: Code(s): I16.1 - Hypertensive emergency Status: Acute (3) Elevated troponin: Code(s): R77.8 - Other specified abnormalities of plasma proteins Status: Acute Plan Mr Salazar is an 81 year old male with no significant past medical history presenting with altered mental status in the setting of hypertensive emergency. MRI was negative for acute stroke and PRES. LP was positive only for elevated protein (158), which is non-specific and could be an early marker for inflammatory process or related to elevated BP. BP has stabilized but mental status seems to continue to fluctuate. Bacterial CSF culture has been negative, ruling out bacterial meningitis. Viral encephalitis is still a possibility. WBC keeps uptrending, which is concerning for occult infection. Other consideration is autoimmune encephalitis, especially with the hallucinations and lack of improvement with antibiotics/antivirals. At this point, with his WBC uptrending, I don't feel comfortable empirically treating with high dose Solumedrol for autoimmune encephalitis, unless we are confident that there is no infectious process occurring. 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 Lastly, hospital acquired delirium is a possibility as well. - Currently being treated with antibiotics and acyclovir for meningitic/encephalitic coverage, continue until cultures final - Consider starting antifungal and re-evaluating for infectious process, discussed with hospitalist - Will obtain routine EEG - Will send autoimmune encephalitis panel and possibly 14-3-3/RT-QuIC - Considering repeating MRI brain w/wo contrast; GFR has been low so contrast was not given with initial MRI - Family would like to seek second opinion, which I feel is appropriate; discussed that [facility] or [facility] would probably be the best option Subjective Date/time seen: 03/30/22 09:14 Interval history: Isreal Salazar is a 81 year old male with no significant past medical history presenting for evaluation of altered mental status. found patient on 03/27 in the morning, sitting on couch with just underwear on, holding his head in his hands. He appeared confused and was unable to answer questions other than with I don't know . He reported he had to go to the bathroom, but walked towards the backdoor rather than the bathroom. 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 Due to the new episode of confusion, patient was brought into [facility] ED. In the ED his BP was elevated to 225/118. Labs were significant for mild troponemia and renal injury. He was given a dose of hydralazine for elevated BP. CT brain was negative for any acute process. Patient did complain of a mild, holoacranial headache, but no other significant symptoms. Patient continues to remain agitated today. and daughter in law at bedside. At baseline is AOx4. 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 No history of tick bite as far as family knows. He does not have a history of frequent UTI. There have not been any reports of seizure-like activity. UA and CXR negative of infection. MRI brain without contrast negative for stroke or PRES. LP done which showed cell count 3 and protein elevated to 158. Gram stain and preliminary culture showed light WBC and RBC but no organisms. Other infectious CSF studies pending. He was empirically started on meninigitic antibiotics and acyclovir. WBC elevated to 21 today. HSV PCR is pending. On vancomycin, Rocephin, acyclovir, and ampicillin. No fevers and BP has been appropriate. Mental status is worse today. Continues to have hallucinations per famil
[2022-03-30] MEDS: amLODIPine BESYLATE 5 MG TABLET PO (09:22)
[2022-03-30] MEDS: ASPIRIN 81 MG ENTERIC TABLET PO (09:22)
--- NOTE | 2022-03-30 10:10 | P.PNIM_ITS ---
Progress Note: A&P Assessment and Plan (1) Encephalopathy: Code(s): G93.40 - Encephalopathy, unspecified Status: Acute Assessment and Plan: Patient comes in for AMS, no prior medical history. states he is normally A/O x 3 but has had a few fleeting moments of confusion over the past month. He has not had any recent falls or trauma. * head ct negative x 2. * MRI brain negative for any acute stroke. * carotid doppler: no hemodynamically significant stenosis * LP: 03/28/2022: neg for infection, had some RBCs. other panel negative.opening pressure 14 cm water normal, clear colorless fluid collected. * Patient prescribed empiric ceftraixone, acyclovir, vcancomycin and ampicillin. csf with rate wbc, no organisms. awit viral studies. * CTA of the head and neck unable to be done at this time given renal failure * neuro was consulted, recommendations appreciated * continue fall precautions and neuro checks * ua neg for infection however has rbcs * CXR negative * Differential includes hypertensive encephalopathy versus occult infection such as meningitis or encephalitis * Patient's white blood cell count trending up. Today (03/30/2022) white blood cell count 21.1. * Neurology continuing to follow and appreciate recommendations. * 03/30/22 patient mental status decline from yesterday. Have been in contact with Dr. Foley and we agreed to repeat CT chest abdomen pelvis and UA. * We also discussed it being a good idea for patient to be transferred to outside facility for further evaluation. * RPR, HIV, Ehrlichiosis, rickettsia ordered; waiting on lab response to order coxeilla burnetii * Has been put on [facility] transfer list (2) Elevated blood pressure reading: Code(s): R03.0 - Elevated blood-pressure reading, without diagnosis of hypertension Status: Acute Assessment and Plan: On admission the patient's blood pressure 225/118. * Patient given hydralazine 10 mg and blood pressure declined to 102/89. * Patient seen by Cardiology and due to precipitous drop in IV hydralazine it was advised that IV hydralazine be avoided. * Patient given 5 mg amlodipine daily * Blood pressures have remained stable * 03/30/22 BP today 133/86-continue to closely monitor (3) Carotid bruit: Code(s): R09.89 - Other specified symptoms and signs involving the circulatory and respiratory systems Status: Acute Assessment and Plan: carotid doppler with no hemodyanmically significant stenosis (4) Elevated troponin: Code(s): R77.8 - Other specified abnormalities of plasma proteins Status: Acute Assessment and Plan: * trop mildly elevated on arrival but flat * repeat trop was ordered when pt had acute change in mentation today, this is pending * cardiology consulted as above * Cardiology suspected troponins elevated due to hypertension * echo ef >70%, no signiciant valvular abnormlaity (5) Renal failure: Code(s): N19 - Unspecified kidney failure Status: Acute Assessment and Plan: creat 1.6 on arrival. * creatinien reamins stable. * renal us negative for hydronephrosis * has ckd stage III * Continue to monitor Subjective Date/time seen: 03/30/22 10:10 Interval history: 82-year-old male without significant medical history who presented to the emergency department via private vehicle from home for evaluation of altered mental status. Seen patient today and he was obviously confused as to situation, time and place. Patient did know family. Patient denies being any p
--- NOTE | 2022-03-30 10:10 | PM.IMPN ---
Progress Note: A&P Assessment and Plan (1) Encephalopathy: Code(s): G93.40 - Encephalopathy, unspecified Status: Acute Assessment and Plan: Patient comes in for AMS, no prior medical history. states he is normally A/O x 3 but has had a few fleeting moments of confusion over the past month. He has not had any recent falls or trauma. head ct negative x 2. MRI brain negative for any acute stroke. carotid doppler: no hemodynamically significant stenosis LP: 03/28/2022: neg for infection, had some RBCs. other panel negative.opening pressure 14 cm water normal, clear colorless fluid collected. Patient prescribed empiric ceftraixone, acyclovir, vcancomycin and ampicillin. csf with rate wbc, no organisms. awit viral studies. CTA of the head and neck unable to be done at this time given renal failure neuro was consulted, recommendations appreciated continue fall precautions and neuro checks ua neg for infection however has rbcs CXR negative Differential includes hypertensive encephalopathy versus occult infection such as meningitis or encephalitis Patient's white blood cell count trending up. Today (03/30/2022) white blood cell count 21.1. Neurology continuing to follow and appreciate recommendations. 03/30/22 patient mental status decline from yesterday. Have been in contact with Dr. Foley and we agreed to repeat CT chest abdomen pelvis and UA. We also discussed it being a good idea for patient to be transferred to outside facility for further evaluation. RPR, HIV, Ehrlichiosis, rickettsia ordered; waiting on lab response to order coxeilla burnetii Has been put on [facility] transfer list (2) Elevated blood pressure reading: Code(s): R03.0 - Elevated blood-pressure reading, without diagnosis of hypertension Status: Acute Assessment and Plan: On admission the patient's blood pressure 225/118. Patient given hydralazine 10 mg and blood pressure declined to 102/89. Patient seen by Cardiology and due to precipitous drop in IV hydralazine it was advised that IV hydralazine be avoided. Patient given 5 mg amlodipine daily Blood pressures have remained stable 03/30/22 BP today 133/86-continue to closely monitor (3) Carotid bruit: Code(s): R09.89 - Other specified symptoms and signs involving the circulatory and respiratory systems Status: Acute Assessment and Plan: carotid doppler with no hemodyanmically significant stenosis (4) Elevated troponin: Code(s): R77.8 - Other specified abnormalities of plasma proteins Status: Acute Assessment and Plan: trop mildly elevated on arrival but flat repeat trop was ordered when pt had acute change in mentation today, this is pending cardiology consulted as above Cardiology suspected troponins elevated due to hypertension echo ef >70%, no signiciant valvular abnormlaity (5) Renal failure: Code(s): N19 - Unspecified kidney failure Status: Acute Assessment and Plan: creat 1.6 on arrival. creatinien reamins stable. renal us negative for hydronephrosis has ckd stage III Continue to monitor Subjective Date/time seen: 03/30/22 10:10 Interval history: 82-year-old male without significant medical history who presented to the emergency department via private vehicle from home for evaluation of altered mental status. Seen patient today and he was obviously confused as to situation, time and place. Patient did know family. Patient denies being any pain he does states that he is ready to leave the building. Patient denies chest pain, shortness a breath, nausea, vomiting, diarrhea. Family states that he has not had any complaints since being here. Review of Systems Review of Systems: All systems reviewed & are unremarkable except as noted in HPI and below Exam Narrative: GENERAL: Comfortable, no acute distress HENMT: moist mucous membranes EYES: EOM int
[2022-03-30 12:10] LABS: Herpes Simplex Type 1 DNA PCR Not Detected (Not Detected); Herpes Simplex Type 2 DNA PCR Not Detected (Not Detected)
--- NOTE | 2022-03-30 14:23 | PCNEURO ---
EEG was attempted but patient was unable to cooperate enough for it to be completed. Dr Foley informed unable to be done.
[2022-03-30 18:09] LABS: Add Urine Microscopic? YES; Appearance Urine Clear (Clear); Bilirubin Urine Negative (Negative); Blood Urine 2+ (Negative); Color Urine Yellow (Yellow); Glucose Urine UA Negative (Negative); Ketones Urine Negative (Negative); Leukocyte Esterase Ur Trace LEU/UL (Negative); Nitrate Urine Negative (Negative); Protein Urine Trace mg/dL (Negative); Specific Grav Ur 1.025 (1.001-1.035); Urobilinogen Urine 0.2 mg/dL (<2.0); pH Urine 5.5 (5.0-9.0)
[2022-03-30 18:14] LABS: Mucus Urine Rare /lpf; RBC Urine 21-50 /hpf (0-2); Squamous Epithelial Cell Urine Rare /hpf (Few); WBC Urine 16-20 /hpf
[2022-03-30 19:09] LABS: Epstein Barr Virus DNA PCR Not Detected (Not Detected); Source Epstein Barr Virus CSF
[2022-03-30] MEDS: diphenhydrAMINE HCl CAP 25 MG CAPSULE PO (19:58)
[2022-03-30] MEDS: MELATONIN 3 MG TABLET PO (19:58)
[2022-03-30] MEDS: QUEtiapine FUMARATE 25 MG TABLET PO (20:46)
[2022-03-30] MEDS: OLANZapine 10 MG INJ VIAL 5 MG IM ×2 (21:55→22:45)
[2022-03-30] MEDS: WATER, STERILE FOR INJECTION 10 ML VIAL XX ×2 (21:56→22:49)
[2022-03-30] MEDS: CENTRAL LINE FLUSH 10 ML IV PUSH (21:57)
[2022-03-30 23:10] LABS: VZV DNA, QL PCR Not Detected (Not Detected); Varicella Zoster Source CSF
[2022-03-31] VITALS (16 sets, daily range): BP systolic 132–165; BP diastolic 72–109; PULSE 87–125; RESP 18–22; TEMP 36.8–37.7; O2SAT 95–100
[2022-03-31] MEDS: cefTRIAXone 2 GM in SODIUM CHLORIDE 0.9% IV 100 ML 200 ML IVPB ×3 (01:24→23:16)
[2022-03-31] MEDS: AMPICILLIN 2 GM/NS 100 ML 2 GM/100 ML BAG IVPB ×4 (03:27→20:14)
[2022-03-31] MEDS: CENTRAL LINE FLUSH 10 ML IV PUSH ×4 (06:44→21:08)
[2022-03-31 06:45] LABS: Basophils Percent Auto 0.2 % (0.2-1.2); Eosinophils Absolute Auto 0.2 K/mm3 (0-0.3); Eosinophils Percent Auto 1.1 % (0-4.4); Hematocrit 35.1 % (42.0-52.0); Hemoglobin 11.9 g/dL (14.0-18.0); Immature Granulocyte Absolute 0.08 K/mm3 (0.00-0.031); Immature Granulocyte Percent A 0.6 % (0-0.5); Lymphocytes Absolute Auto 1.59 K/mm3 (0.9-3.2); Lymphocytes Percent Auto 11.1 % (18.3-44.2); Mean Corpuscular HGB Conc 33.9 g/dl (32-36); Mean Corpuscular Hemoglobin 31.1 pg (26-34); Mean Corpuscular Volume 91.6 fl (80-100); Mean Platelet Volume 10.9 fl (7.4-10.4); Monocytes Percent Auto 13.6 % (2.6-8.5); Neutrophils Absolute Auto 10.5 K/mm3 (1.3-6.7); Neutrophils Percent Auto 73.4 % (45.5-73.1); Platelet Count Result 218 k/mm3 (150-375); Red Blood Count 3.83 M/mm3 (4.6-6.20); Red Cell Distribution Width 12.3 % (11.5-14.5); White Blood Count 14.3 K/mm3 (4.5-10.0)
[2022-03-31 06:54] LABS: Lactic Acid Reflex 1.3 mmol/L (0.7-2.0)
[2022-03-31 06:55] LABS: Alanine Aminotransferase 43 U/L (6-50); Albumin Level 3.6 g/dL (3.5-5.1); Alkaline Phosphatase 54 U/L (38-126); Anion Gap 6 mmol/L (8-16); Aspartate Amino Transferase 62 U/L (17-59); Bilirubin,Total 0.6 mg/dL (0.2-1.3); Blood Urea Nitrogen 34 mg/dL (9-20); Calcium 7.9 mg/dL (8.4-10.2); Carbon Dioxide 25 mmol/L (22-30); Chloride 108 mmol/L (98-107); Estimated CRCL calculation 33 ml/min; Estimated Glomerular Filt Rate 39; Glucose 116 mg/dL (65-110); Lipase 53 U/L (23-300); Magnesium 1.9 mg/dL (1.6-2.3); Potassium 4.1 mmol/L (3.4-5.0); Sodium 139 mmol/L (137-145)
[2022-03-31] MEDS: amLODIPine BESYLATE 5 MG TABLET PO (09:03)
[2022-03-31] MEDS: ASPIRIN 81 MG ENTERIC TABLET PO (09:03)
--- NOTE | 2022-03-31 11:11 | P.PNIM_ITS ---
Progress Note: A&P Assessment and Plan (1) Encephalopathy: Code(s): G93.40 - Encephalopathy, unspecified Status: Acute Assessment and Plan: Patient comes in for AMS, no prior medical history. states he is normally A/O x 3 but has had a few fleeting moments of confusion over the past month. He has not had any recent falls or trauma. * head ct negative x 2. * MRI brain negative for any acute stroke. * carotid doppler: no hemodynamically significant stenosis * LP: 03/28/2022: neg for infection, had some RBCs. other panel negative.opening pressure 14 cm water normal, clear colorless fluid collected. * Patient prescribed empiric ceftraixone, acyclovir, vcancomycin and ampicillin. csf with rate wbc, no organisms. awit viral studies. * CTA of the head and neck unable to be done at this time given renal failure * neuro was consulted, recommendations appreciated * continue fall precautions and neuro checks * ua neg for infection however has rbcs * CXR negative * Differential includes hypertensive encephalopathy versus occult infection such as meningitis or encephalitis * Patient's white blood cell count trending up. Today (03/30/2022) white blood cell count 21.1. * Neurology continuing to follow and appreciate recommendations. * RPR, HIV, Ehrlichiosis, rickettsia ordered; waiting on lab response to order coxeilla burnetii * Has been put on [facility] transfer list * 03/31/22 D/w Dr. 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 Family aware that prognosis is guarded. (2) Elevated blood pressure reading: Code(s): R03.0 - Elevated blood-pressure reading, without diagnosis of hypertension Status: Acute Assessment and Plan: On admission the patient's blood pressure 225/118. * Patient given hydralazine 10 mg and blood pressure declined to 102/89. * Patient seen by Cardiology and due to precipitous drop in IV hydralazine it was advised that IV hydralazine be avoided. * Patient given 5 mg amlodipine daily * Blood pressures have remained stable * 03/30/22 BP today 133/86-continue to closely monitor * 03/31 BP controlled (3) Carotid bruit: Code(s): R09.89 - Other specified symptoms and signs involving the circulatory and respiratory systems Status: Acute Assessment and Plan: carotid doppler with no hemodyanmically significant stenosis (4) Elevated troponin: Code(s): R77.8 - Other specified abnormalities of plasma proteins Status: Acute Assessment and Plan: * trop mildly elevated on arrival but flat * repeat trop was ordered when pt had acute change in mentation today, this is pending * cardiology consulted as above * Cardiology suspected troponins elevated due to hypertension * echo ef >70%, no signiciant valvular abnormlaity (5) Renal failure: Code(s): N19 - Unspecified kidney failure Status: Acute Assessment and Plan: creat 1.6 on arrival. * creatinien reamins stable. * renal us negative for hydronephrosis * has ckd stage III * Continue to monitor Subjective Date/time seen: 03/31/22 11:11 Interval history:
--- NOTE | 2022-03-31 11:11 | PM.IMPN ---
Progress Note: A&P Assessment and Plan (1) Encephalopathy: Code(s): G93.40 - Encephalopathy, unspecified Status: Acute Assessment and Plan: Patient comes in for AMS, no prior medical history. states he is normally A/O x 3 but has had a few fleeting moments of confusion over the past month. He has not had any recent falls or trauma. head ct negative x 2. MRI brain negative for any acute stroke. carotid doppler: no hemodynamically significant stenosis LP: 03/28/2022: neg for infection, had some RBCs. other panel negative.opening pressure 14 cm water normal, clear colorless fluid collected. Patient prescribed empiric ceftraixone, acyclovir, vcancomycin and ampicillin. csf with rate wbc, no organisms. awit viral studies. CTA of the head and neck unable to be done at this time given renal failure neuro was consulted, recommendations appreciated continue fall precautions and neuro checks ua neg for infection however has rbcs CXR negative Differential includes hypertensive encephalopathy versus occult infection such as meningitis or encephalitis Patient's white blood cell count trending up. Today (03/30/2022) white blood cell count 21.1. Neurology continuing to follow and appreciate recommendations. RPR, HIV, Ehrlichiosis, rickettsia ordered; waiting on lab response to order coxeilla burnetii Has been put on [facility] transfer list 03/31/22 D/w Dr. 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 Family aware that prognosis is guarded. (2) Elevated blood pressure reading: Code(s): R03.0 - Elevated blood-pressure reading, without diagnosis of hypertension Status: Acute Assessment and Plan: On admission the patient's blood pressure 225/118. Patient given hydralazine 10 mg and blood pressure declined to 102/89. Patient seen by Cardiology and due to precipitous drop in IV hydralazine it was advised that IV hydralazine be avoided. Patient given 5 mg amlodipine daily Blood pressures have remained stable 03/30/22 BP today 133/86-continue to closely monitor / BP controlled (3) Carotid bruit: Code(s): R09.89 - Other specified symptoms and signs involving the circulatory and respiratory systems Status: Acute Assessment and Plan: carotid doppler with no hemodyanmically significant stenosis (4) Elevated troponin: Code(s): R77.8 - Other specified abnormalities of plasma proteins Status: Acute Assessment and Plan: trop mildly elevated on arrival but flat repeat trop was ordered when pt had acute change in mentation today, this is pending cardiology consulted as above Cardiology suspected troponins elevated due to hypertension echo ef >70%, no signiciant valvular abnormlaity (5) Renal failure: Code(s): N19 - Unspecified kidney failure Status: Acute Assessment and Plan: creat 1.6 on arrival. creatinien reamins stable. renal us negative for hydronephrosis has ckd stage III Continue to monitor Subjective Date/time seen: 03/31/22 11:11 Interval history: Follow-up encephalopathy More confused last 24 hours. Difficulty swallowing this morning. Family put water in his mouth but he did not swallow it. He complains of generalized discomfort. Restless Review of Systems Review of Systems: ROS unobtainable: Yes unobtainable due to medical condition Exam Narrative: Restless elderly man who is cooperative with exam and speaking fairly incessantly sometimes mumbling with speech
--- NOTE | 2022-03-31 11:28 | WPDNEUROPN ---
Progress Note: A&P Assessment and Plan (1) Encephalopathy: Code(s): G93.40 - Encephalopathy, unspecified Status: Acute (2) Hypertensive emergency: Code(s): I16.1 - Hypertensive emergency Status: Acute (3) Elevated troponin: Code(s): R77.8 - Other specified abnormalities of plasma proteins Status: Acute Plan Mr Salazar is an 81 year old male with no significant past medical history presenting with altered mental status in the setting of hypertensive emergency. MRI was negative for acute stroke and PRES. LP was positive only for elevated protein (158), which is non-specific and could be an early marker for inflammatory process or related to elevated BP. BP has stabilized but mental status seems to continue to fluctuate. Bacterial CSF culture has been negative, ruling out bacterial meningitis. Viral encephalitis is still a possibility. WBC initially uptrending, but better today -- no infectious source found on repeat work-up. Strongly considering autoimmune encephalitis, especially with the hallucinations and lack of improvement with antibiotics/antivirals, and now having dysarthria/dysphagia (brainstem encephalitis?). We have also discussed the possibility of prion disease, although his course seems more rapid than would expected. Since infectious work-up has remained negative, and WBC seems better today, I will consider starting high dose steroids if his blood culture comes back negative and WBC continues to downtrend. Would be helpful to have MRI with contrast to see if there are any inflammatory changes to suggest encephalitis -- but holding off for now as per hospitalist's recommendation given his renal function. - Will re-evaluate tomorrow regarding steroids and MRI w/ contrast - Blood culture and other CSF infectious studies are still pending - Autoimmune encephalitis panel has been sent. Discussed with lab about adding 14-3-3 protein/RT-QuIC to CSF sample which is currently all at [facility]. They will discuss with [facility] about the possibility of adding this on. - Per hospitalist recommendation, will check inflammatory markers and gets swallow evaluation - Currently awaiting transfer to [facility] for second opinion Subjective Date/time seen: 03/31/22 11:28 Interval history: Isreal Salazar is a 81 year old male with no significant past medical history presenting for evaluation of altered mental status. found patient on 03/27 in the morning, sitting on couch with just underwear on, holding his head in his hands. He appeared confused and was unable to answer questions other than with I don't know . He reported he had to go to the bathroom, but walked towards the backdoor rather than the bathroom. 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 Due to the new episode of confusion, patient was brought into [place] ED. In the ED his BP was elevated to 225/118. Labs were significant for mild troponemia and renal injury. He was given a dose of hydralazine for elevated BP. CT brain was negative for any acute process. Patient did complain of a mild, holoacranial headache, but no other significant symptoms. At baseline he is AOx4. 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 No history of tick bite as far as family knows. There have not been any reports of seizure-like activity. UA and CXR negative of infection. MRI brain without contrast negative for stroke or PRES. Contrast not given due to renal function. LP done which showed cell count 3 and protein elevated to 158. Gram stain and preliminary culture showed light WBC and RBC but no organisms. Other infectious CSF studies pending. He was empirically started on meningitic antibiotics and acyclovir. Interval history: Did not tolerate EEG yesterday, unable to be completed. WBC improved today, down to 14. CT chest showed 3mm nodule, b
[2022-03-31 11:40] LABS: CRP 4.9 mg/dL (<1.0)
[2022-03-31] MEDS: DEXTROSE 5%/0.9% SOD CHL 1,000 ML 80 ML IV CONT (11:45)
--- NOTE | 2022-03-31 13:06 | PCOTNOTE ---
Per RN, pt is not appropriate to be seen for Occupational Therapy treatment today. Will continue per POC duration/frequency tomorrow.
[2022-03-31 15:50] LABS: Hepatitis B Surface Antigen Negative (Negative)
[2022-03-31] MEDS: MELATONIN 3 MG TABLET PO (20:13)
[2022-03-31 20:51] LABS: Vancomycin Trough 14.5 ug/mL (10.0-20.0)
[2022-04-01] VITALS (13 sets, daily range): BP systolic 129–156; BP diastolic 56–88; PULSE 96–128; RESP 20–28; TEMP 36.6–37.9; O2SAT 94–100
[2022-04-01] MEDS: OLANZapine 10 MG INJ VIAL 5 MG IM ×2 (00:21→00:59)
[2022-04-01] MEDS: WATER, STERILE FOR INJECTION 10 ML VIAL XX (00:22)
[2022-04-01] MEDS: DEXTROSE 5%/0.9% SOD CHL 1,000 ML 80 ML IV CONT ×2 (01:15→14:33)
[2022-04-01] MEDS: AMPICILLIN 2 GM/NS 100 ML 2 GM/100 ML BAG IVPB ×4 (02:26→21:31)
[2022-04-01] MEDS: CENTRAL LINE FLUSH 10 ML IV PUSH ×4 (04:39→23:29)
[2022-04-01 04:48] LABS: Hematocrit 36.2 % (42.0-52.0); Hemoglobin 11.8 g/dL (14.0-18.0); Mean Corpuscular HGB Conc 32.6 g/dl (32-36); Mean Corpuscular Hemoglobin 31.2 pg (26-34); Mean Corpuscular Volume 95.8 fl (80-100); Platelet Count Result 211 k/mm3 (150-375); Red Blood Count 3.78 M/mm3 (4.6-6.20); Red Cell Distribution Width 12.3 % (11.5-14.5); White Blood Count 16.5 K/mm3 (4.5-10.0)
[2022-04-01 05:08] LABS: Alanine Aminotransferase 42 U/L (6-50); Albumin Level 3.4 g/dL (3.5-5.1); Alkaline Phosphatase 59 U/L (38-126); Anion Gap 5 mmol/L (8-16); Aspartate Amino Transferase 45 U/L (17-59); Bilirubin,Total 0.8 mg/dL (0.2-1.3); Blood Urea Nitrogen 25 mg/dL (9-20); Calcium 7.8 mg/dL (8.4-10.2); Carbon Dioxide 28 mmol/L (22-30); Chloride 105 mmol/L (98-107); Estimated CRCL calculation 35 ml/min; Estimated Glomerular Filt Rate 42; Glucose 122 mg/dL (65-110); Magnesium 1.8 mg/dL (1.6-2.3); Phosphorus 2.9 mg/dL (2.5-4.5); Potassium 3.6 mmol/L (3.4-5.0); Sodium 138 mmol/L (137-145)
[2022-04-01] MEDS: ASPIRIN 81 MG ENTERIC TABLET PO (07:56)
[2022-04-01] MEDS: amLODIPine BESYLATE 5 MG TABLET PO (07:56)
--- NOTE | 2022-04-01 08:47 | PCOTNOTE ---
Attempted to see pt for Occupational therapy. Per RN and family, pt is not appropriate at this time and had just recently got settled into sleep. Will continue per poc duration/frequency tomorrow.
--- NOTE | 2022-04-01 10:50 | WPDNEUROPN ---
Progress Note: A&P Assessment and Plan (1) Encephalopathy: Code(s): G93.40 - Encephalopathy, unspecified Status: Acute (2) Fever: Code(s): R50.9 - Fever, unspecified Status: Acute (3) Knee pain: Code(s): M25.569 - Pain in unspecified knee Status: Acute (4) Leukocytosis: Code(s): D72.829 - Elevated white blood cell count, unspecified Status: Acute (5) Elevated CSF protein: Code(s): R83.8 - Other abnormal findings in cerebrospinal fluid Status: Acute (6) Hallucinations: Code(s): R44.3 - Hallucinations, unspecified Status: Acute Plan Mr Salazar is an 81 year old male with no significant past medical history presenting with altered mental status in the setting of hypertensive emergency. MRI was negative for acute stroke and PRES. LP was positive only for elevated protein (158), which is non-specific and could be an early marker for inflammatory process or related to elevated BP. BP has stabilized but mental status seems to continue to fluctuate. Bacterial CSF culture has been negative, ruling out bacterial meningitis. Viral encephalitis is still a possibility. Leukocytosis but no infectious source found on repeat work-up. Knees swollen today with higher temp. Hospitalist working up for tic borne illness as well as other zoonosis. We have also discussed the possibility of vasculitis given possible signs of systemic inflammation as noted by swelling of the knees and renal disease (chronic vs acute) and low grade fevers. Autoimmune encephalitis is still a consideration, especially with the hallucinations and lack of improvement with antibiotics/antivirals, and now having dysarthria/dysphagia (brainstem encephalitis?). We have also discussed the possibility of prion disease, although his course seems more rapid than would expected. We have discussed the option of treating empirically for autoimmune encephalitis with high dose steroids; however now with the low grade fevers and knee swelling, will need to rule out infectious etiology prior to initiating steroids. Autoimmune encephalitis panel has been sent. His mental status does seem better today -- less agitated and AOx3. - Would be helpful to obtain MRI brain WITH and without contrast to evaluate for autoimmune encephalitis and vasculitis - Autoimmune encephalitis panel has been sent. Discussed with lab about adding 14-3-3 protein/RT-QuIC to CSF sample which is currently all at [facility]. They will discuss with [facility] about the possibility of adding this on. - Hospitalist team is working up for additional infectious etiologies - Currently awaiting transfer to [facility] Subjective Date/time seen: 04/01/22 10:50 Interval history: Isreal Salazar is a 81 year old male with no significant past medical history presenting for evaluation of altered mental status. found patient on 03/27 in the morning, sitting on couch with just underwear on, holding his head in his hands. He appeared confused and was unable to answer questions other than with I don't know . He reported he had to go to the bathroom, but walked towards the backdoor rather than the bathroom. 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 Due to the new episode of confusion, patient was brought into [place] ED. In the ED his BP was elevated to 225/118. Labs were significant for mild troponemia and renal injury. He was given a dose of hydralazine for elevated BP. CT brain was negative for any acute process. Patient did complain of a mild, holoacranial headache, but no other significant symptoms. At baseline he is AOx4. 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 No history of tick bite as far as family knows. There have not been any reports of seizure-like activity. UA and CXR negative of infection. MRI brain without contrast negati
[2022-04-01] MEDS: cefTRIAXone 2 GM in SODIUM CHLORIDE 0.9% IV 100 ML 200 ML IVPB ×2 (12:39→23:30)
--- NOTE | 2022-04-01 12:57 | P.PNIM_ITS ---
Progress Note: A&P Assessment and Plan (1) Encephalopathy: Code(s): G93.40 - Encephalopathy, unspecified Status: Acute Assessment and Plan: Patient comes in for AMS, no prior medical history. states he is normally A/O x 3 but has had a few fleeting moments of confusion over the past month. He has not had any recent falls or trauma. * head ct negative x 2. * MRI brain negative for any acute stroke. * carotid doppler: no hemodynamically significant stenosis except increased velocities bilateral external carotid arteries * LP 03/28/2022: Clear/colorless. WBC 3, RBC 82, Glucose 69, TP 158. OP 14cm H2O. * Empiric ceftriaxone, acyclovir, vancomycin and ampicillin for meningitis * Empiric Acyclovir but HSV PCR and VZV PCR negative. EBV also negative. Acyclovir stopped. * CTA of the head and neck unable to be done at this time given renal failure * BCx NGTD. UCx pending. CSF Cx NGTD. * Neuro consulted, recommendations appreciated * Differential includes hypertensive encephalopathy vs occult infection vs autoimmune vs paraneoplastic vs vasculitis. * Continue fall precautions and neuro checks * Elevated WBC and low grade fevers * RPR, HIV, Ehrlichiosis, rickettsia ordered; waiting on lab response to order coxeilla burnetii * Has been put on [facility] transfer list (2) Fever: Code(s): R50.9 - Fever, unspecified Status: Acute Assessment and Plan: As above. Now with low grade fever despite broad spectrum abx. Consider inflammatory from gout? or atelectasis. Follow (3) Knee pain: Code(s): M25.569 - Pain in unspecified knee Status: Acute Assessment and Plan: Bilateral tender and edematous knees. Related to above as infectious process (Lyme?) or acute bacterial or gout. Check xray but will need arthrocentesis. (4) Elevated blood pressure reading: Code(s): R03.0 - Elevated blood-pressure reading, without diagnosis of hypertension Status: Acute Assessment and Plan: On admission the patient's blood pressure 225/118. * Patient given hydralazine 10 mg and blood pressure declined to 102/89. * Patient seen by Cardiology and due to precipitous drop in IV hydralazine it was advised that IV hydralazine be avoided. * Patient given 5 mg amlodipine daily * Blood pressures has remained stable; Follow (5) Carotid bruit: Code(s): R09.89 - Other specified symptoms and signs involving the circulatory and respiratory systems Status: Acute Assessment and Plan: carotid doppler with no hemodyanmically significant internal carotid stenosis. Contnue ASA (6) Elevated troponin: Code(s): R77.8 - Other specified abnormalities of plasma proteins Status: Acute Assessment and Plan: Troponin was mildly elevated on arrival and climbed to 0.165 * EKG showing first degree AVB, LVH, LAD * cardiology following * Cardiology suspected troponin elevated due to hypertension * echo EF >70%, no significant valvular abnormality (7) Renal failure: Code(s): N19 - Unspecified kidney failure Status: Acute Assessment and Plan: Creat 1.6 on arrival. * creatinine remains stable. * renal us negative for hydronephrosis * Continue to monitor Subjective Date/time seen: 04/01/22 12:57 Interval history: 81yo male relatively healthy here for confusion. He was admitted on 03/27/22. Patient is alert but confused. Patient was combative last night and agitated. He did receive melatonin and Tylenol at time of bed. He was given Zyp
--- NOTE | 2022-04-01 12:57 | PM.IMPN ---
Progress Note: A&P Assessment and Plan (1) Encephalopathy: Code(s): G93.40 - Encephalopathy, unspecified Status: Acute Assessment and Plan: Patient comes in for AMS, no prior medical history. states he is normally A/O x 3 but has had a few fleeting moments of confusion over the past month. He has not had any recent falls or trauma. head ct negative x 2. MRI brain negative for any acute stroke. carotid doppler: no hemodynamically significant stenosis except increased velocities bilateral external carotid arteries LP 03/28/2022: Clear/colorless. WBC 3, RBC 82, Glucose 69, TP 158. OP 14cm H2O. Empiric ceftriaxone, acyclovir, vancomycin and ampicillin for meningitis Empiric Acyclovir but HSV PCR and VZV PCR negative. EBV also negative. Acyclovir stopped. CTA of the head and neck unable to be done at this time given renal failure BCx NGTD. UCx pending. CSF Cx NGTD. Neuro consulted, recommendations appreciated Differential includes hypertensive encephalopathy vs occult infection vs autoimmune vs paraneoplastic vs vasculitis. Continue fall precautions and neuro checks Elevated WBC and low grade fevers RPR, HIV, Ehrlichiosis, rickettsia ordered; waiting on lab response to order coxeilla burnetii Has been put on [facility] transfer list (2) Fever: Code(s): R50.9 - Fever, unspecified Status: Acute Assessment and Plan: As above. Now with low grade fever despite broad spectrum abx. Consider inflammatory from gout? or atelectasis. Follow (3) Knee pain: Code(s): M25.569 - Pain in unspecified knee Status: Acute Assessment and Plan: Bilateral tender and edematous knees. Related to above as infectious process (Lyme?) or acute bacterial or gout. Check xray but will need arthrocentesis. (4) Elevated blood pressure reading: Code(s): R03.0 - Elevated blood-pressure reading, without diagnosis of hypertension Status: Acute Assessment and Plan: On admission the patient's blood pressure 225/118. Patient given hydralazine 10 mg and blood pressure declined to 102/89. Patient seen by Cardiology and due to precipitous drop in IV hydralazine it was advised that IV hydralazine be avoided. Patient given 5 mg amlodipine daily Blood pressures has remained stable; Follow (5) Carotid bruit: Code(s): R09.89 - Other specified symptoms and signs involving the circulatory and respiratory systems Status: Acute Assessment and Plan: carotid doppler with no hemodyanmically significant internal carotid stenosis. Contnue ASA (6) Elevated troponin: Code(s): R77.8 - Other specified abnormalities of plasma proteins Status: Acute Assessment and Plan: Troponin was mildly elevated on arrival and climbed to 0.165 EKG showing first degree AVB, LVH, LAD cardiology following Cardiology suspected troponin elevated due to hypertension echo EF >70%, no significant valvular abnormality (7) Renal failure: Code(s): N19 - Unspecified kidney failure Status: Acute Assessment and Plan: Creat 1.6 on arrival. creatinine remains stable. renal us negative for hydronephrosis Continue to monitor Subjective Date/time seen: 04/01/22 12:57 Interval history: 81yo male relatively healthy here for confusion. He was admitted on 03/27/22. Patient is alert but confused. Patient was combative last night and agitated. He did receive melatonin and Tylenol at time of bed. He was given Zyprexa 5 mg IM once around 12:30am a 2nd does about 30 minutes later. According to the nursing staff, patient was able to sleep for a few hours. He has not been sleeping well. He developed a low-grade fever. He is complain of bilateral knee pain. He denies any shoulder pain. No hx of gout. Family in the room. Knee pain started yesterday. Has hx of chronic back pain and not worse then ususal. Hx of back surgeries. Exam Narrative:
[2022-04-01] MEDS: ACETAMINOPHEN 325 MG TABLET 650 MG PO ×2 (15:00→22:17)
--- NOTE | 2022-04-01 16:21 | PCOTNOTE ---
Per nursing staff, pt is not appropriate for Occupational Therapy at this time. Will continue per poc duration/frequency tomorrow.
[2022-04-01] MEDS: polyethylene glycoL 3350 17 GM POWD.PACK PO (17:12)
[2022-04-01 17:14] LABS: Complement C3 98 mg/dL (88-165)
[2022-04-01 17:29] LABS: Erythrocyte Sedimentation Rate 110 mm/hr (0-20)
[2022-04-01 17:49] LABS: HIV 1/2 Ab P24 Ag Result Negative (Negative)
[2022-04-01 18:36] LABS: Hepatitis B Surface Antigen Negative (Negative)
[2022-04-01 18:41] LABS: Hepatitis B Core IgM Result Negative (Negative)
[2022-04-01 18:53] LABS: Hepatitis B Surface Anti Res Negative; Hepatitis C Virus Antibody Negative (Negative)
[2022-04-01] MEDS: QUEtiapine FUMARATE 25 MG TABLET PO (21:31)
[2022-04-02] VITALS (16 sets, daily range): BP systolic 90–153; BP diastolic 54–79; PULSE 97–116; RESP 20–24; TEMP 36.4–38.4; O2SAT 95–100
[2022-04-02] MEDS: AMPICILLIN 2 GM/NS 100 ML 2 GM/100 ML BAG IVPB ×4 (01:50→20:05)
--- NOTE | 2022-04-02 02:34 | PC.NURSE ---
04/02/22 0234-Spoke with [facility] transfer center and there is no bed availability at this time.
[2022-04-02] MEDS: DEXTROSE 5%/0.9% SOD CHL 1,000 ML 80 ML IV CONT (04:36)
[2022-04-02] MEDS: CENTRAL LINE FLUSH 10 ML IV PUSH ×3 (05:47→21:23)
[2022-04-02] MEDS: ACETAMINOPHEN 325 MG TABLET 650 MG PO ×2 (05:54→11:40)
[2022-04-02 05:58] LABS: Hematocrit 33.2 % (42.0-52.0); Hemoglobin 10.8 g/dL (14.0-18.0); Mean Corpuscular HGB Conc 32.5 g/dl (32-36); Mean Corpuscular Hemoglobin 31.7 pg (26-34); Mean Corpuscular Volume 97.4 fl (80-100); Mean Platelet Volume 10.7 fl (7.4-10.4); Platelet Count Result 199 k/mm3 (150-375); Red Blood Count 3.41 M/mm3 (4.6-6.20); Red Cell Distribution Width 12.7 % (11.5-14.5); White Blood Count 20.7 K/mm3 (4.5-10.0)
[2022-04-02 06:16] LABS: Alanine Aminotransferase 29 U/L (6-50); Albumin Level 2.9 g/dL (3.5-5.1); Alkaline Phosphatase 56 U/L (38-126); Anion Gap 3 mmol/L (8-16); Aspartate Amino Transferase 29 U/L (17-59); Bilirubin,Total 0.5 mg/dL (0.2-1.3); Blood Urea Nitrogen 18 mg/dL (9-20); Calcium 7.3 mg/dL (8.4-10.2); Carbon Dioxide 26 mmol/L (22-30); Chloride 109 mmol/L (98-107); Estimated CRCL calculation 35 ml/min; Estimated Glomerular Filt Rate 42; Glucose 123 mg/dL (65-110); Magnesium 1.8 mg/dL (1.6-2.3); Phosphorus 2.3 mg/dL (2.5-4.5); Potassium 3.7 mmol/L (3.4-5.0); Sodium 138 mmol/L (137-145)
[2022-04-02] MEDS: amLODIPine BESYLATE 5 MG TABLET PO (09:12)
[2022-04-02] MEDS: polyethylene glycoL 3350 17 GM POWD.PACK PO (09:12)
[2022-04-02] MEDS: POTASSIUM/PHOSPHORUS/SODIUM 1.5 GM PACKET 1 PACKET PO (09:12)
[2022-04-02] MEDS: ASPIRIN 81 MG ENTERIC TABLET PO (09:12)
[2022-04-02 09:22] LABS: Rapid Plasma Reagin Non-Reactive (NonReactive)
[2022-04-02] MEDS: cefTRIAXone 2 GM in SODIUM CHLORIDE 0.9% IV 100 ML 200 ML IVPB ×2 (11:40→23:25)
--- NOTE | 2022-04-02 16:43 | P.PNIM_ITS ---
Progress Note: A&P Assessment and Plan (1) Encephalopathy: Code(s): G93.40 - Encephalopathy, unspecified Status: Acute Assessment and Plan: Patient comes in for AMS, no prior medical history. states he is normally A/O x 4 but has had a few fleeting moments of confusion over the past month. He has not had any recent falls or trauma. 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 * MRI brain negative for any acute stroke. * carotid doppler: no hemodynamically significant stenosis except increased velocities bilateral external carotid arteries * LP 03/28/2022: Clear/colorless. WBC 3, RBC 82, Glucose 69, TP 158. OP 14cm H2O. * Empiric ceftriaxone, vancomycin and ampicillin for meningitis * Empiric Acyclovir started. HSV PCR, VZV PCR and CSF EBV negative. Acyclovir stopped. * CTA of the head and neck unable to be done at this time given renal failure * BCx NGTD. UCx negative. CSF Cx NGTD. * Neuro consulted and recommendations appreciated * Differential includes hypertensive encephalopathy vs occult infection vs autoimmune vs paraneoplastic vs vasculitis vs zoonotic (Brucellosis) vs. listeria or TB encephalomeningitis. * Clinically better. Now with reactive arthritis vs septic vs gout. Red bain or related to underlying main disease process. Brucellosis and TB can affect joints. * Continue fall precautions and neuro checks * Elevated WBC and fevers probably related to the knee effusions * RPR, HIV, and Hepatitis panel negative. Ehrlichiosis, rickettsia ordered * [facility] (2) Fever: Code(s): R50.9 - Fever, unspecified Status: Acute Assessment and Plan: As above. Now with fevers and climbing WBC despite broad spectrum abx. Consider from septic arthritis. Follow (3) Knee pain: Code(s): M25.569 - Pain in unspecified knee Status: Acute Assessment and Plan: Bilateral tender and edematous knees that are erythematous and warm. Related to above as infectious process (Lyme?) or acute bacterial or gout. Xray showing effusions and arthrocentesis ordered. (4) Elevated blood pressure reading: Code(s): R03.0 - Elevated blood-pressure reading, without diagnosis of hypertension Status: Acute Assessment and Plan: On admission the patient's blood pressure 225/118. * Patient given hydralazine 10 mg and blood pressure declined to 102/89. * Patient seen by Cardiology and due to precipitous drop with IV hydralazine it was advised that IV hydralazine be avoided. * Patient given 5 mg amlodipine daily * Blood pressures was stable but now SBP in the 90's * Hold [facility] (5) Carotid bruit: Code(s): R09.89 - Other specified symptoms and signs involving the circulatory and respiratory systems Status: Acute Assessment and Plan: Carotid doppler with no hemodynamically significant internal carotid stenosis. Continue ASA (6) Elevated troponin: Code(s): R77.8 - Other specified abnormalities of plasma proteins Status: Acute Assessment and Plan: Troponin was mildly elevated on arrival and climbed to 0.165 * EKG showing first degree AVB, LVH, LAD * cardiology following * Cardiology suspected troponin elevated due to hypertension * echo EF >70%, no significant valvular abnormality despite murmur (7) Renal failure: Code(s): N19 - Unspecified kidney failure Status: Acute Assessment and Plan: Creat 1.6 on arrival. * creatinine remains stable. * Family states patient has a chronic kidney disease * wilmer
--- NOTE | 2022-04-02 16:43 | PM.IMPN ---
Progress Note: A&P Assessment and Plan (1) Encephalopathy: Code(s): G93.40 - Encephalopathy, unspecified Status: Acute Assessment and Plan: Patient comes in for AMS, no prior medical history. states he is normally A/O x 4 but has had a few fleeting moments of confusion over the past month. He has not had any recent falls or trauma. 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 MRI brain negative for any acute stroke. carotid doppler: no hemodynamically significant stenosis except increased velocities bilateral external carotid arteries LP 03/28/2022: Clear/colorless. WBC 3, RBC 82, Glucose 69, TP 158. OP 14cm H2O. Empiric ceftriaxone, vancomycin and ampicillin for meningitis Empiric Acyclovir started. HSV PCR, VZV PCR and CSF EBV negative. Acyclovir stopped. CTA of the head and neck unable to be done at this time given renal failure BCx NGTD. UCx negative. CSF Cx NGTD. Neuro consulted and recommendations appreciated Differential includes hypertensive encephalopathy vs occult infection vs autoimmune vs paraneoplastic vs vasculitis vs zoonotic (Brucellosis) vs. listeria or TB encephalomeningitis. Clinically better. Now with reactive arthritis vs septic vs gout. Red bain or related to underlying main disease process. Brucellosis and TB can affect joints. Continue fall precautions and neuro checks Elevated WBC and fevers probably related to the knee effusions RPR, HIV, and Hepatitis panel negative. Ehrlichiosis, rickettsia ordered [facility] been put [facility] (2) Fever: Code(s): R50.9 - Fever, unspecified Status: Acute Assessment and Plan: As above. Now with fevers and climbing WBC despite broad spectrum abx. Consider from septic arthritis. Follow (3) Knee pain: Code(s): M25.569 - Pain in unspecified knee Status: Acute Assessment and Plan: Bilateral tender and edematous knees that are erythematous and warm. Related to above as infectious process (Lyme?) or acute bacterial or gout. Xray showing effusions and arthrocentesis ordered. (4) Elevated blood pressure reading: Code(s): R03.0 - Elevated blood-pressure reading, without diagnosis of hypertension Status: Acute Assessment and Plan: On admission the patient's blood pressure 225/118. Patient given hydralazine 10 mg and blood pressure declined to 102/89. Patient seen by Cardiology and due to precipitous drop with IV hydralazine it was advised that IV hydralazine be avoided. Patient given 5 mg amlodipine daily Blood pressures was stable but now SBP in the 90's Hold [facility] (5) Carotid bruit: Code(s): R09.89 - Other specified symptoms and signs involving the circulatory and respiratory systems Status: Acute Assessment and Plan: Carotid doppler with no hemodynamically significant internal carotid stenosis. Continue ASA (6) Elevated troponin: Code(s): R77.8 - Other specified abnormalities of plasma proteins Status: Acute Assessment and Plan: Troponin was mildly elevated on arrival and climbed to 0.165 EKG showing first degree AVB, LVH, LAD cardiology following Cardiology suspected troponin elevated due to hypertension echo EF >70%, no significant valvular abnormality despite murmur (7) Renal failure: Code(s): N19 - Unspecified kidney failure Status: Acute Assessment and Plan: Creat 1.6 on arrival. creatinine remains stable. Family states patient has a chronic kidney disease renal US negative for hydronephrosis Continue to monitor. Stop IV fluids Subjective Date/time seen: 04/02/22 16:43 Interval history: 81yo male relatively healthy here for confusion. He was admitted on 03/27/22. Patient is alert and more oriented today. Family state patietn still having hallucination and confusion at times. He is eating poorly. He feels better overall. Still with the knee pain. He does bir
[2022-04-02 18:48] LABS: HIV 1 RNA PCR Not Detected Copies/mL; HIV 1 RNA PCR Not Detected Log cps/mL
[2022-04-02 20:58] LABS: Vancomycin Trough 15.5 ug/mL (10.0-20.0)
[2022-04-02 21:11] LABS: Appearance Synovial Fluid Cloudy (Clear); Color Synovial Fluid Yellow (Colorless); Lymphocytes Synovial Fluid 5 %; Monocytes Synovial Fluid 4 %; Neutrophils Synovial Fluid 91 % (0-25); RBC Synovial Fluid 0 /uL (0-0); Source Synovial Fluid Synovial fluid
[2022-04-02 21:13] LABS: Appearance Synovial Fluid Cloudy (Clear); Color Synovial Fluid Yellow (Colorless); Lymphocytes Synovial Fluid 6 %; Macrophages Synovial Fluid 20 %; Nucleated Cell Synovial Fluid 25337 /uL (0-200); RBC Synovial Fluid 6475 /uL (0-0); Source Synovial Fluid Synovial fluid
[2022-04-02 21:20] LABS: Crystals Synovial Fluid Rare Cppd (None Seen)
[2022-04-02 21:24] LABS: Crystals Synovial Fluid Rare Cppd (None Seen)
[2022-04-02] MEDS: traMADol HCL (*CRX) 25 MG TABLET PO (21:24)
[2022-04-02] MEDS: QUEtiapine FUMARATE 25 MG TABLET PO (21:24)
[2022-04-02] MEDS: NYSTATIN 100,000 UNITS/ML SUSP 5 ML ORAL.SUSP PO (21:25)
--- NOTE | 2022-04-02 21:36 | PC.NURSE ---
Lab reported gram stain synovial fluid to bilateral knees as having many WBCs seen, but no organisms seen.
[2022-04-03] VITALS (12 sets, daily range): BP systolic 109–131; BP diastolic 60–86; PULSE 87–107; RESP 14–20; TEMP 36.9–37.4; O2SAT 98–100
[2022-04-03] MEDS: AMPICILLIN 2 GM/NS 100 ML 2 GM/100 ML BAG IVPB ×4 (02:20→21:10)
[2022-04-03] MEDS: CENTRAL LINE FLUSH 10 ML IV PUSH ×4 (05:07→21:11)
[2022-04-03 05:15] LABS: Hematocrit 27.9 % (42.0-52.0); Hemoglobin 9.1 g/dL (14.0-18.0); Mean Corpuscular HGB Conc 32.6 g/dl (32-36); Mean Corpuscular Hemoglobin 30.8 pg (26-34); Mean Corpuscular Volume 94.6 fl (80-100); Mean Platelet Volume 10.3 fl (7.4-10.4); Platelet Count Result 199 k/mm3 (150-375); Red Blood Count 2.95 M/mm3 (4.6-6.20); Red Cell Distribution Width 12.7 % (11.5-14.5)
[2022-04-03 05:27] LABS: Alanine Aminotransferase 24 U/L (6-50); Albumin Level 2.6 g/dL (3.5-5.1); Alkaline Phosphatase 49 U/L (38-126); Anion Gap 3 mmol/L (8-16); Aspartate Amino Transferase 27 U/L (17-59); Bilirubin,Total 0.4 mg/dL (0.2-1.3); Blood Urea Nitrogen 17 mg/dL (9-20); Calcium 7.1 mg/dL (8.4-10.2); Carbon Dioxide 24 mmol/L (22-30); Chloride 107 mmol/L (98-107); Estimated CRCL calculation 33 ml/min; Estimated Glomerular Filt Rate 39; Glucose 98 mg/dL (65-110); Magnesium 1.8 mg/dL (1.6-2.3); Phosphorus 2.5 mg/dL (2.5-4.5); Potassium 3.3 mmol/L (3.4-5.0); Sodium 134 mmol/L (137-145)
[2022-04-03 07:34] LABS: Neutrophils Synovial Fluid 74 % (0-25)
[2022-04-03] MEDS: ASPIRIN 81 MG ENTERIC TABLET PO (09:12)
[2022-04-03] MEDS: NYSTATIN 100,000 UNITS/ML SUSP 5 ML ORAL.SUSP PO ×4 (09:13→21:10)
--- NOTE | 2022-04-03 09:31 | PM.CNOR ---
History of Present Illness HPI Consult date: 04/03/22 Chief complaint: AMS,HYPERTENSIVE ENCEPHALOPATHY,ELEVATED TROPONIN PMFSH Past Medical History Medical History (Updated 04/01/22 @ 15:43 by Marnie Foley MD) Benign prostatic hyperplasia Gastroesophageal reflux disease Surgical History Surgical History (Updated 03/28/22 @ 13:58 by Jennifer Krause PA-C) History of appendectomy History of cholecystectomy History of excision of pilonidal cyst History of laser assisted in situ keratomileusis History of repair of right rotator cuff History of spinal surgery X4. Family History Family History Father Family history of pancreatic cancer, Onset Age: 70 Sibling Family history of coronary artery disease Social History Social History (Updated 03/28/22 @ 14:00 by Jennifer Krause PA-C) Social History: Surrogate medical decision maker: Julita Salazar, spouse. Code status: Full code. Smoking status: Never smoker Second hand tobacco smoke exposure: No Alcohol intake: never Substance use: never Substance use type: does not use Lack of Transportation: No Lack of Food: Never True Current Housing: I Have Housing Concerned About Future Housing: No Difficulty Paying Gas/Electric Bills: No Difficulty Paying for Meds: No Currently Unemployed: No Education: High School Diploma/GED Difficulty w/ Childcare or Family Care: No Additional living arrangements comments: Lives with spouse in [place]. Additional occupation/education comments: [employer]. Spiritual care concerns: No Meds Home Medications and Allergies Home Medications Medication Instructions Recorded Confirmed Type finasteride 1 mg tablet (Propecia) 1 mg PO DAILY #90 tabs 03/28/22 Rx Allergies Allergy/AdvReac Type Severity Reaction Status Date / Time No Known Allergies Allergy Verified 03/27/22 15:34 Vital Signs Vital Signs - 24 hr 04/02/22 12:00 04/02/22 12:02 04/02/22 12:00 Temperature 37.4 C 38.4 C H Pulse Rate 109 H Respiratory Rate 24 H Blood Pressure 147/79 H Pulse Oximetry 99 Oxygen Delivery Room Air 04/02/22 10:00 04/02/22 12:00 04/02/22 14:00 Temperature Pulse Rate 98 107 H 105 H Respiratory Rate Blood Pressure Pulse Oximetry Oxygen Delivery 04/02/22 16:00 04/02/22 16:00 04/02/22 14:02 Temperature 38.2 C H Pulse Rate 106 H Respiratory Rate 20 Blood Pressure 93/54 L 90/71 L Pulse Oximetry 97 Oxygen Delivery Room Air 04/02/22 16:00 04/02/22 18:00 04/02/22 20:26 Temperature 37.2 C Pulse Rate 108 H 116 H 106 H Respiratory Rate 20 Blood Pressure 136/73 Pulse Oximetry 95 Oxygen Delivery 04/02/22 20:00 04/02/22 20:00 04/02/22 22:00 Temperature Pulse Rate 107 H 111 H Respiratory Rate Blood Pressure Pulse Oximetry Oxygen Delivery Room Air 04/02/22 23:32 04/03/22 00:00 04/03/22 00:00 Temperature 37.1 C Pulse Rate 103 H 95 Respiratory Rate 20 Blood Pressure 114/65 Pulse Oximetry Oxygen Delivery Room Air 04/03/22 00:00 04/03/22 02:00 04/03/22 04:03 Temperature 37.4 C Pulse Rate 105 H 105 H Respiratory Rate 20 Blood Pressure 131/72 Pulse Oximetry 100 98 Oxygen Delivery 04/03/22 04:00 04/03/22 04:00 04/03/22 06:00 Temperature Pulse Rate 106 H 97 Respiratory Rate Blood Pressure Pulse Oximetry Oxygen Delivery Room Air 04/03/22 07:49 Temperature 36.9 C Pulse Rate 101 H Respiratory Rate 20 Blood Pressure 121/64 Pulse Oximetry 98 Oxygen Delivery Results Labs 04/03/22 05:10 04/03/22 05:10 Labs: Abnormal lab results 04/02/22 04/02/22 04/03/22 Range/Units 18:40 18:40 05:10 WBC 14.0 H (4.5-10.0) K/mm3 RBC 2.95 L (4.6-6.20) M/mm3 Hgb 9.1 L (14.0-18.0) g/dL Hct 27.9 L (42.0-52.0) % Sodium (137-145) mmol/L
[2022-04-03] MEDS: ACETAMINOPHEN 325 MG TABLET 650 MG PO ×2 (11:26→15:00)
[2022-04-03] MEDS: cefTRIAXone 2 GM in SODIUM CHLORIDE 0.9% IV 100 ML 200 ML IVPB (12:23)
--- NOTE | 2022-04-03 13:07 | P.PNIM_ITS ---
Progress Note: A&P Assessment and Plan (1) Encephalopathy: Code(s): G93.40 - Encephalopathy, unspecified Status: Acute Assessment and Plan: Patient comes in for AMS, no prior medical history. He is normally A/O x 4 but has had a few fleeting moments of confusion over the past month. He has not had any recent falls or trauma. 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 MRI brain negative for any acute stroke. * carotid doppler: no hemodynamically significant stenosis except increased velocities bilateral external carotid arteries * LP 03/28/22: Clear/colorless. WBC 3, RBC 82, Glucose 69, TP 158. OP 14cm H2O. * Empiric ceftriaxone, vancomycin and ampicillin for meningitis * Empiric Acyclovir started. HSV, VZV and EBV CSF negative. Acyclovir stopped. * RPR, HIV, and Hepatitis panel negative. Ehrlichiosis, rickettsia ordered * CTA of the head and neck unable to be done at this time given renal failure * Fungal smear negative. BCx NGTD. UCx negative. CSF Cx NGTD. * Neuro consulted and recommendations appreciated * Differential includes hypertensive encephalopathy vs occult infection vs autoimmune vs paraneoplastic vs vasculitis vs zoonotic (Brucellosis) vs. listeria or TB encephalomeningitis. * Clinically better. Now with bilateral knee pseudo-gout felt to be red bain and unrelated to underlying main disease process. 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 Continue Ampicillin. * Continue fall precautions and neuro checks * Elevated WBC to 20K but trending down now. Fever waning as well. * Continue low dose Seroquel * Nystatin for possible thrush; remove Prater; continue PT/OT; move to medical * Discussed with Neuro about de-escalating abx once knee cx negative (no answer when called) * [facility] (2) Knee pain: Code(s): M25.569 - Pain in unspecified knee Status: Acute Assessment and Plan: Bilateral tender and edematous knees that are erythematous and warm. Cell count reviewed from both arthrocentesis. Crystals showing CPPD. Knee pain and redness related to pseudogout. Ortho consulted. (3) Elevated blood pressure reading: Code(s): R03.0 - Elevated blood-pressure reading, without diagnosis of hypertension Status: Acute Assessment and Plan: On admission the patient's blood pressure 225/118. * Patient given hydralazine 10 mg and blood pressure declined to 102/89. * Patient seen by Cardiology and due to precipitous drop with IV hydralazine it was advised that IV hydralazine be avoided. * Patient given 5 mg amlodipine daily but SBP dropped to 90 so Norvasc stopped * Blood pressures more stable now. Follow (4) Carotid bruit: Code(s): R09.89 - Other specified symptoms and signs involving the circulatory and respiratory systems Status: Acute Assessment and Plan: Carotid doppler with no hemodynamically significant internal carotid stenosis. Continue ASA (5) Elevated troponin: Code(s): R77.8 - Other specified abnormalities of plasma proteins Status: Acute Assessment and Plan: Troponin was mildly elevated on arrival and climbed to 0.165 * EKG showing first degree AVB, LVH, LAD * cardiology following * Cardiology suspected troponin elevated due to hypertension * echo EF >70%, no significant valvular abnormality despite murmur (6) Renal failure: Code(s): N19 - Unspecified kidney failure Status: Acute Assessment and Plan: Creat 1.6 on arrival. * creatinine remains stable. * Fa
--- NOTE | 2022-04-03 13:07 | PM.IMPN ---
Progress Note: A&P Assessment and Plan (1) Encephalopathy: Code(s): G93.40 - Encephalopathy, unspecified Status: Acute Assessment and Plan: Patient comes in for AMS, no prior medical history. He is normally A/O x 4 but has had a few fleeting moments of confusion over the past month. He has not had any recent falls or trauma. 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 MRI brain negative for any acute stroke. carotid doppler: no hemodynamically significant stenosis except increased velocities bilateral external carotid arteries LP 03/28/22: Clear/colorless. WBC 3, RBC 82, Glucose 69, TP 158. OP 14cm H2O. Empiric ceftriaxone, vancomycin and ampicillin for meningitis Empiric Acyclovir started. HSV, VZV and EBV CSF negative. Acyclovir stopped. RPR, HIV, and Hepatitis panel negative. Ehrlichiosis, rickettsia ordered CTA of the head and neck unable to be done at this time given renal failure Fungal smear negative. BCx NGTD. UCx negative. CSF Cx NGTD. Neuro consulted and recommendations appreciated Differential includes hypertensive encephalopathy vs occult infection vs autoimmune vs paraneoplastic vs vasculitis vs zoonotic (Brucellosis) vs. listeria or TB encephalomeningitis. Clinically better. Now with bilateral knee pseudo-gout felt to be red bain and unrelated to underlying main disease process. 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 Continue Ampicillin. Continue fall precautions and neuro checks Elevated WBC to 20K but trending down now. Fever waning as well. Continue low dose Seroquel Nystatin for possible thrush; remove Prater; continue PT/OT; move to medical Discussed with Neuro about de-escalating abx once knee cx negative (no answer when called) [facility] been put [facility] (2) Knee pain: Code(s): M25.569 - Pain in unspecified knee Status: Acute Assessment and Plan: Bilateral tender and edematous knees that are erythematous and warm. Cell count reviewed from both arthrocentesis. Crystals showing CPPD. Knee pain and redness related to pseudogout. Ortho consulted. (3) Elevated blood pressure reading: Code(s): R03.0 - Elevated blood-pressure reading, without diagnosis of hypertension Status: Acute Assessment and Plan: On admission the patient's blood pressure 225/118. Patient given hydralazine 10 mg and blood pressure declined to 102/89. Patient seen by Cardiology and due to precipitous drop with IV hydralazine it was advised that IV hydralazine be avoided. Patient given 5 mg amlodipine daily but SBP dropped to 90 so Norvasc stopped Blood pressures more stable now. Follow (4) Carotid bruit: Code(s): R09.89 - Other specified symptoms and signs involving the circulatory and respiratory systems Status: Acute Assessment and Plan: Carotid doppler with no hemodynamically significant internal carotid stenosis. Continue ASA (5) Elevated troponin: Code(s): R77.8 - Other specified abnormalities of plasma proteins Status: Acute Assessment and Plan: Troponin was mildly elevated on arrival and climbed to 0.165 EKG showing first degree AVB, LVH, LAD cardiology following Cardiology suspected troponin elevated due to hypertension echo EF >70%, no significant valvular abnormality despite murmur (6) Renal failure: Code(s): N19 - Unspecified kidney failure Status: Acute Assessment and Plan: Creat 1.6 on arrival. creatinine remains stable. Family states patient has a chronic kidney disease renal US negative for hydronephrosis Continue to monitor. Subjective Date/time seen: 04/03/22 13:07 Interval history: 81yo male relatively healthy here for confusion. He was admitted on 03/27/22. Patient feels better today. His knees are still sore but much improved after the arthrocentesis. He denies having hallucina
--- NOTE | 2022-04-03 13:21 | PM.CNOR ---
Assessment and Plan Assessment and plan (1) Knee pain: Qualifiers: Laterality: bilateral Code(s): M25.569 - Pain in unspecified knee Status: Acute (2) Bilateral knee effusions: Code(s): M25.461 - Effusion, right knee; M25.462 - Effusion, left knee Status: Acute Assessment and Plan: New patient evaluation for chief complaint bilateral knee swelling and pain while acutely in the hospital. History, physical exam and radiographs reviewed with the patient. On exam he still has residual effusion more on the left than the right and tenderness to palpation. However, able to flex and extend knee bilaterally without significant pain. No other signs of infection. Radiographs show moderate degenerative changes. Bilateral knee aspirate done yesterday showed no organisms on Gram stain. White blood cell count consistent with inflammatory arthritis , calcium pyrophosphate crystals consistent with pseudogout. Discussed in detail with patient and family. He has not had much in the way of problems prior to this with his knees. Conservative treatment ice, compression and elevation. PT/OT with weight-bearing as tolerated. May consider expectant observation versus attempted reaspiration to remove more of the effusion. (3) Pseudogout of knee: Qualifiers: Laterality: unspecified laterality Qualified Code(s): M11.269 - Other chondrocalcinosis, unspecified knee Code(s): M11.269 - Other chondrocalcinosis, unspecified knee Status: Acute History of Present Illness HPI Consult date: 04/03/22 Requesting physician: Perry Meyer MD Chief complaint: knee effusion Narrative: 81-year-old admitted last week with mental status changes. While in the hospital has developed bilateral knee swelling and pain. Review of Systems Constitutional: Constitutional: Denies fever(s) Eyes: Eyes: Denies blurry vision ENT: Reports Normal hearing present Cardiovascular: Cardiovascular: Denies chest pain and Denies dyspnea Respiratory: Respiratory: Denies dyspnea and Denies wheezing Gastrointestinal: Gastrointestinal: Denies abdominal pain Genitourinary: Genitourinary: Denies urinary urgency Musculoskeletal: Musculoskeletal: Reports as per HPI and Denies numbness Integumentary/Breasts: Skin/Breast: Denies changing lesions and Denies sores Neurologic: Reports Normal hearing present, Denies behavioral changes, Denies confusion, Denies numbness and Denies convulsions Psychiatric: Psychiatric: Denies behavioral changes, Denies confusion and Denies hallucinations Endocrine: Endocrine: Denies heat intolerance Hematologic/Lymphatic: Hematologic/Lymphatic: Denies easy bleeding Allergic/Immunologic: Allergic/Immunologic: Denies wheezing PMFSH Past Medical History Medical History (Updated 04/03/22 @ 13:25 by Alberto Vasquez MD) Benign prostatic hyperplasia Bilateral knee effusions Gastroesophageal reflux disease Pseudogout of knee Surgical History Surgical History History of appendectomy History of cholecystectomy History of excision of pilonidal cyst History of laser assisted in situ keratomileusis History of repair of right rotator cuff History of spinal surgery X4. Family History Family History Father Family history of pancreatic cancer, Onset Age: 70 Sibling Family history of coronary artery disease Social History Social History Social History: Surrogate medical decision maker: Julita Salazar, spouse. Code status: Full code. Smoking status: Never smoker Second hand tobacco smoke exposure: No Alcohol intake: never Substance use: never Substance use type: does not use Lack of Transportation: No Lack of Food: Never True Current Housing: I Have Housing Concerned About Futur
[2022-04-03] MEDS: POTASSIUM CHLORIDE 20 MEQ PACKET (FOR LIQUID) 40 MEQ PO (14:56)
--- NOTE | 2022-04-03 15:57 | PM.OP ---
Procedure Note - Brief Procedure Note - Brief Date of procedure: 04/03/22 Pre-op diagnosis: knee effusion Bilateral Knee DJD with Effusion Post-op diagnosis: Same Procedure performed: Bilateral Knee Aspiration/Injection Description of procedure: See joint injection details Anesthesia: local Surgeon: GLADIS Weiss Department Manager: n/a Estimated blood loss (mL): 0 Drains: No Packing: No Pathology: None sent Complications: No immediate complications Condition: Stable Disposition: Floor Joint Aspiration/Injection Pre-Procedure Pre-procedure care: Consent was obtained, Procedures/risks were explained, Questions were answered, Correct patient identified and Correct side and site confirmed Position Position: Laying Site Prepped Technique: aseptic technique with povidone-iodine and alcohol Anesthetic: ethyl chloride (spray ) and lidocaine 1% plain 22 gauge Injection Details bilateral arthrocentesis major joint Knee lateral joint line Manual palpation Fluid: Inflammatory Fluid Withdrawn (mL): 97 Comments:: 60mL aspiration from the left knee 37mL aspiration from the right knee methylprednisolone acetate 80mg- 1 mL per knee Injection performed s/p aspiration. Sterile Dressing Pressure Improvement by site: Mild Post Procedure Patient tolerated the procedure well?: Tolerated procedure well
--- NOTE | 2022-04-03 16:07 | PC.NURSE ---
Orders to transfer to med/surg- report given to Marielena RN- pt moved to room 247 vi abed accompanied by staff and - belongings with pt
[2022-04-03] MEDS: QUEtiapine FUMARATE 25 MG TABLET PO (21:10)
[2022-04-04] MEDS: cefTRIAXone 2 GM in SODIUM CHLORIDE 0.9% IV 100 ML 200 ML IVPB ×2 (01:21→12:26)
[2022-04-04 01:32] VITALS: BP 125/77; PULSE 77; RESP 18; TEMP 36.6; O2SAT 98
[2022-04-04] MEDS: AMPICILLIN 2 GM/NS 100 ML 2 GM/100 ML BAG IVPB ×4 (01:52→21:01)
[2022-04-04 05:32] LABS: Hematocrit 32.3 % (42.0-52.0); Hemoglobin 10.4 g/dL (14.0-18.0); Mean Corpuscular HGB Conc 32.2 g/dl (32-36); Mean Corpuscular Hemoglobin 31.1 pg (26-34); Mean Corpuscular Volume 96.7 fl (80-100); Mean Platelet Volume 10.5 fl (7.4-10.4); Platelet Count Result 231 k/mm3 (150-375); Red Blood Count 3.34 M/mm3 (4.6-6.20); Red Cell Distribution Width 12.7 % (11.5-14.5); White Blood Count 11.7 K/mm3 (4.5-10.0)
[2022-04-04 05:48] LABS: Anion Gap 5 mmol/L (8-16); Blood Urea Nitrogen 22 mg/dL (9-20); Calcium 7.8 mg/dL (8.4-10.2); Carbon Dioxide 24 mmol/L (22-30); Chloride 111 mmol/L (98-107); Estimated CRCL calculation 30 ml/min; Estimated Glomerular Filt Rate 34; Glucose 203 mg/dL (65-110); Magnesium 2.1 mg/dL (1.6-2.3); Phosphorus 1.9 mg/dL (2.5-4.5); Potassium 4.3 mmol/L (3.4-5.0); Sodium 140 mmol/L (137-145)
[2022-04-04] MEDS: CENTRAL LINE FLUSH 10 ML IV PUSH ×4 (05:50→21:10)
[2022-04-04 07:08] VITALS: BP 144/78; PULSE 76; RESP 16; TEMP 36.6; O2SAT 98
--- NOTE | 2022-04-04 08:22 | PM.PNORT ---
Progress Note: A&P Assessment and Plan (1) Pseudogout of knee: Qualifiers: Laterality: unspecified laterality Qualified Code(s): M11.269 - Other chondrocalcinosis, unspecified knee Code(s): M11.269 - Other chondrocalcinosis, unspecified knee Status: Acute (2) Bilateral knee effusions: Code(s): M25.461 - Effusion, right knee; M25.462 - Effusion, left knee Status: Acute Assessment and Plan: Reaspiration of both knees yesterday. Patient notes improvement. Minimal pain today. Swelling better. May continue with weight-bearing as tolerated. Discharge when medically stable. Follow up as needed. Subjective Subjective Date/Time Seen: 04/04/22 08:22 Principal diagnosis: Bilateral knee effusion Interval history: patient states knees feel better. Re- aspiration yesterday with approximately 50 cc from left knee and 30 cc from right knee. Exam Const: General: healthy appearing; No in distress or confusion Orientation/consciousness: oriented to person, oriented to place, oriented to time and No confusion HENMT: Head: normal to inspection, normocephalic and atraumatic Eyes: Conjunctivae: conjunctivae normal Sclera: sclerae normal Neck: Neck: supple and nontender Resp: Effort & Inspection: normal respiratory effort and no audible wheezes Cardio: Rate: regular rate Rhythm: regular rhythm Skin: General skin exam: no rashes or lesions noted Neuro: General: oriented to person, oriented to place, oriented to time and No confusion Extrem: Right upper extremity: normal to inspection Left upper extremity: normal to inspection Right lower extremity: hip/thigh Details: normal ROM; no tenderness, knee Details: tenderness (anterior and medial joint line) Location: of the medial joint line (moderate) and of the pre-patellar area (moderate), swelling (peripatellar and medial joint ), abnormal ROM (active range of motion -10 degrees, 110 degrees flexion) Details: pain with active ROM during Details: in extension and in flexion, knee ligament exam normal Details: anterior drawer test normal, posterior drawer test normal, valgus stress test normal and Thong?s test normal, knee ligament exam abnormal Details: varus stress test normal (painful medial) and Johan's Test Details: positive medially and foot Details: normal capillary refill, toes with normal ROM, vascular exam Details: dorsalis pedis pulse present and motor-sensory exam Details: light-touch normal; no tenderness; no edema Left lower extremity: normal to inspection, normal capillary refill, hip/thigh Details: normal ROM; no tenderness, knee Details: tenderness Location: of the patella, of the medial joint line and of the infrapatellar area, swelling Location: of the infrapatellar area (mild), abnormal ROM (active extension -10, flexion 110), knee ligament exam normal Details: anterior drawer test normal, posterior drawer test normal, valgus stress test normal, varus stress test normal and Thong's test normal, Johan's Test Details: negative laterally and positive medially and crepitus Location: at the patella (mild) and foot Details: toes with normal ROM, vascular exam Details: dorsalis pedis pulse present and normal capillary refill and motor-sensory exam light-touch normal; no tenderness Psych: Affect: normal affect Objective Data Vital Signs Vital Signs: Vital Signs - 24 hr 04/03/22 10:31 04/03/22 08:30 04/03/22 08:30 Temperature Pulse Rate 98 Respiratory Rate Blood Pressure Pulse Oximetry Oxygen Delivery Room Air Room Air 04/03/22 10:00 04/03/22 12:00 04/03/22 12:00 Temperature 98.8 F Pulse Rate 99 107 H 107 H Respiratory Rate 18 Blood Pressure 109/60 Pulse Oximetry 99 Oxygen Delivery 04/03/22 12:00 04/03/22 14:00 04/03/22 17:15 Temperature 98.7 F Pulse Rate 101 H 88 Respiratory Rate 18 Blood Pressure 124/66 Pulse Oximetry 99 Oxygen Delivery Room Air 04/03/22 20:
[2022-04-04] MEDS: polyethylene glycoL 3350 17 GM POWD.PACK PO (09:55)
[2022-04-04] MEDS: NYSTATIN 100,000 UNITS/ML SUSP 5 ML ORAL.SUSP PO ×4 (09:55→21:01)
[2022-04-04] MEDS: ASPIRIN 81 MG ENTERIC TABLET PO (09:55)
[2022-04-04 10:11] VITALS: BP 131/66; PULSE 96; RESP 16; TEMP 36.7; O2SAT 98
[2022-04-04 12:17] VITALS: BMI 26.3
[2022-04-04 14:07] VITALS: BP 150/79; PULSE 100; RESP 16; TEMP 36.4; O2SAT 98
--- NOTE | 2022-04-04 14:34 | P.PNIM_ITS ---
Progress Note: A&P Assessment and Plan (1) Encephalopathy: Code(s): G93.40 - Encephalopathy, unspecified Status: Acute Assessment and Plan: Patient comes in for AMS, no prior medical history. He is normally A/O x 4 but has had a few fleeting moments of confusion over the past month. He has not had any recent falls or trauma. 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 MRI brain negative for any acute stroke. * carotid doppler: no hemodynamically significant stenosis except increased velocities bilateral external carotid arteries * LP 03/28/22: Clear/colorless. WBC 3, RBC 82, Glucose 69, TP 158. OP 14cm H2O. * Empiric ceftriaxone, vancomycin and ampicillin for meningitis * Empiric Acyclovir started. HSV, VZV and EBV CSF negative. Acyclovir stopped. * RPR, HIV, and Hepatitis panel negative. Ehrlichia negative peer. Rickettsia pending * CTA of the head and neck unable to be done at this time given renal failure * Fungal smear negative. BCx NGTD. UCx negative. CSF Cx NGTD. * Neuro consulted and recommendations appreciated * Differential includes hypertensive encephalopathy vs occult infection vs autoimmune vs paraneoplastic vs vasculitis vs zoonotic (Brucellosis) vs. listeria or TB encephalomeningitis. * Clinically better. Now with bilateral knee pseudo-gout felt to be red bain and unrelated to underlying main disease process. 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 Continue Ampicillin. Will need 3 weeks of total treatment with IV ampicillin if this is but with going to treat. CSF studies however not suggestive of bacterial meningitis. CSF fluid culture has also been negative. * Continue fall precautions and neuro checks * Elevated WBC to 20K but trending down now. Fever waning as well. * Continue low dose Seroquel * Nystatin for possible thrush; remove Prater; continue PT/OT; move to medical * Discussed with Neuro about de-escalating abx once knee cx negative (no answer when called) * Has been put on [facility] transfer list neck Will stop the IV vancomycin this is is day 7 of treatment. Will continue ceftriaxone but lower the dose as bacterial meningitis is not wall spected depending on the initial CSF studies. 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 (2) Knee pain: Qualifiers: Laterality: bilateral Code(s): M25.569 - Pain in unspecified knee Status: Acute Assessment and Plan: Bilateral tender and edematous knees that are erythematous and warm. Cell count reviewed from both arthrocentesis. Crystals showing CPPD. Knee pain and redness related to pseudogout. Ortho consulted. (3) Elevated blood pressure reading: Code(s): R03.0 - Elevated blood-pressure reading, without diagnosis of hypertension Status: Acute Assessment and Plan: On admission the patient's blood pressure 225/118. * Patient given hydralazine 10 mg and blood pressure declined to 102/89. * Patient seen by Cardiology and due to precipitous drop with IV hydralazine it was advised that IV hydralazine be avoided. * Patient given 5 mg amlodipine daily but SBP dropped to 90 so Norvasc stopped * Blood pressures more stable now. Follow (4) Carotid bruit: Code(s): R09.89 - Other specified symptoms and signs involving the circulatory and respiratory systems Status: Acute Assessment and Plan: Carotid doppler with no hemodynamically significant internal carotid stenosis. Continue ASA (5) Elevated trop
--- NOTE | 2022-04-04 14:34 | PM.IMPN ---
Progress Note: A&P Assessment and Plan (1) Encephalopathy: Code(s): G93.40 - Encephalopathy, unspecified Status: Acute Assessment and Plan: Patient comes in for AMS, no prior medical history. He is normally A/O x 4 but has had a few fleeting moments of confusion over the past month. He has not had any recent falls or trauma. 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 MRI brain negative for any acute stroke. carotid doppler: no hemodynamically significant stenosis except increased velocities bilateral external carotid arteries LP 03/28/22: Clear/colorless. WBC 3, RBC 82, Glucose 69, TP 158. OP 14cm H2O. Empiric ceftriaxone, vancomycin and ampicillin for meningitis Empiric Acyclovir started. HSV, VZV and EBV CSF negative. Acyclovir stopped. RPR, HIV, and Hepatitis panel negative. Ehrlichia negative peer. Rickettsia pending CTA of the head and neck unable to be done at this time given renal failure Fungal smear negative. BCx NGTD. UCx negative. CSF Cx NGTD. Neuro consulted and recommendations appreciated Differential includes hypertensive encephalopathy vs occult infection vs autoimmune vs paraneoplastic vs vasculitis vs zoonotic (Brucellosis) vs. listeria or TB encephalomeningitis. Clinically better. Now with bilateral knee pseudo-gout felt to be red bain and unrelated to underlying main disease process. 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 Continue Ampicillin. Will need 3 weeks of total treatment with IV ampicillin if this is but with going to treat. CSF studies however not suggestive of bacterial meningitis. CSF fluid culture has also been negative. Continue fall precautions and neuro checks Elevated WBC to 20K but trending down now. Fever waning as well. Continue low dose Seroquel Nystatin for possible thrush; remove Prater; continue PT/OT; move to medical Discussed with Neuro about de-escalating abx once knee cx negative (no answer when called) Has been put on [facility] transfer list neck Will stop the IV vancomycin this is is day 7 of treatment. Will continue ceftriaxone but lower the dose as bacterial meningitis is not suspected depending on the initial CSF studies. 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 (2) Knee pain: Qualifiers: Laterality: bilateral Code(s): M25.569 - Pain in unspecified knee Status: Acute Assessment and Plan: Bilateral tender and edematous knees that are erythematous and warm. Cell count reviewed from both arthrocentesis. Crystals showing CPPD. Knee pain and redness related to pseudogout. Ortho consulted. (3) Elevated blood pressure reading: Code(s): R03.0 - Elevated blood-pressure reading, without diagnosis of hypertension Status: Acute Assessment and Plan: On admission the patient's blood pressure 225/118. Patient given hydralazine 10 mg and blood pressure declined to 102/89. Patient seen by Cardiology and due to precipitous drop with IV hydralazine it was advised that IV hydralazine be avoided. Patient given 5 mg amlodipine daily but SBP dropped to 90 so Norvasc stopped Blood pressures more stable now. Follow (4) Carotid bruit: Code(s): R09.89 - Other specified symptoms and signs involving the circulatory and respiratory systems Status: Acute Assessment and Plan: Carotid doppler with no hemodynamically significant internal carotid stenosis. Continue ASA (5) Elevated troponin: Code(s): R77.8 - Other specified abnormalities of plasma proteins Status: Acute Assessment and Plan: Troponin was mildly elevated on arrival and climbed to 0.165 EKG showing first degree AVB, LVH, LAD cardiology following Cardiology suspected troponin elevated due to hypertension echo EF >70%, no significant valvular abn
[2022-04-04 18:37] LABS: Anti Glomerular Basement Memb <1.0 AI (<1.0)
[2022-04-04 18:51] LABS: Anti Streptolysin O Screen <50 IU/mL (<200)
[2022-04-04 19:04] VITALS: BP 157/80; PULSE 93; RESP 18; TEMP 36.6; O2SAT 99
[2022-04-04] MEDS: QUEtiapine FUMARATE 25 MG TABLET PO (21:01)
[2022-04-04 23:08] VITALS: BP 137/71; PULSE 85; RESP 17; TEMP 36.6; O2SAT 99
[2022-04-05] MEDS: AMPICILLIN 2 GM/NS 100 ML 2 GM/100 ML BAG IVPB ×4 (01:24→21:25)
[2022-04-05 03:10] VITALS: BP 118/82; PULSE 92; RESP 18; TEMP 36.2; O2SAT 98
[2022-04-05] MEDS: CENTRAL LINE FLUSH 10 ML IV PUSH ×4 (05:02→21:25)
[2022-04-05] MEDS: CENTRAL LINE FLUSH 20 ML IV PUSH (05:02)
[2022-04-05 05:17] LABS: Hematocrit 29.6 % (42.0-52.0); Hemoglobin 9.6 g/dL (14.0-18.0); Mean Corpuscular HGB Conc 32.4 g/dl (32-36); Mean Corpuscular Hemoglobin 30.6 pg (26-34); Mean Corpuscular Volume 94.3 fl (80-100); Mean Platelet Volume 10.4 fl (7.4-10.4); Platelet Count Result 247 k/mm3 (150-375); Red Blood Count 3.14 M/mm3 (4.6-6.20); Red Cell Distribution Width 12.8 % (11.5-14.5); White Blood Count 15.1 K/mm3 (4.5-10.0)
[2022-04-05 05:29] LABS: Alanine Aminotransferase 59 U/L (6-50); Albumin Level 2.8 g/dL (3.5-5.1); Alkaline Phosphatase 69 U/L (38-126); Anion Gap 4 mmol/L (8-16); Aspartate Amino Transferase 76 U/L (17-59); Bilirubin,Total 0.2 mg/dL (0.2-1.3); Blood Urea Nitrogen 30 mg/dL (9-20); Calcium 7.6 mg/dL (8.4-10.2); Carbon Dioxide 25 mmol/L (22-30); Chloride 108 mmol/L (98-107); Estimated CRCL calculation 35 ml/min; Estimated Glomerular Filt Rate 42; Glucose 171 mg/dL (65-110); Magnesium 2.2 mg/dL (1.6-2.3); Phosphorus 2.1 mg/dL (2.5-4.5); Potassium 4.2 mmol/L (3.4-5.0); Sodium 137 mmol/L (137-145)
[2022-04-05] MEDS: NYSTATIN 100,000 UNITS/ML SUSP 5 ML ORAL.SUSP PO ×4 (08:07→21:25)
[2022-04-05] MEDS: polyethylene glycoL 3350 17 GM POWD.PACK PO (08:07)
[2022-04-05] MEDS: ASPIRIN 81 MG ENTERIC TABLET PO (08:07)
[2022-04-05] MEDS: ACETAMINOPHEN 325 MG TABLET 650 MG PO (08:07)
[2022-04-05] MEDS: POTASSIUM/PHOSPHORUS/SODIUM 1.5 GM PACKET 1 PACKET PO (08:37)
[2022-04-05] MEDS: cefTRIAXone 2 GM in SODIUM CHLORIDE 0.9% IV 100 ML 200 ML IVPB (09:29)
[2022-04-05 10:36] VITALS: BP 117/62; PULSE 81; RESP 16; TEMP 36.4; O2SAT 100
--- NOTE | 2022-04-05 12:57 | PM.CNOR ---
History of Present Illness HPI Consult date: 04/05/22 Chief complaint: knee effusion PMFSH Past Medical History Medical History (Updated 04/03/22 @ 13:25 by Alberto Vasquez MD) Benign prostatic hyperplasia Bilateral knee effusions Gastroesophageal reflux disease Pseudogout of knee Surgical History Surgical History History of appendectomy History of cholecystectomy History of excision of pilonidal cyst History of laser assisted in situ keratomileusis History of repair of right rotator cuff History of spinal surgery X4. Family History Family History Father Family history of pancreatic cancer, Onset Age: 70 Sibling Family history of coronary artery disease Social History Social History Social History: Surrogate medical decision maker: Julita Salazar, spouse. Code status: Full code. Smoking status: Never smoker Second hand tobacco smoke exposure: No Alcohol intake: never Substance use: never Substance use type: does not use Lack of Transportation: No Lack of Food: Never True Current Housing: I Have Housing Concerned About Future Housing: No Difficulty Paying Gas/Electric Bills: No Difficulty Paying for Meds: No Currently Unemployed: No Education: High School Diploma/GED Difficulty w/ Childcare or Family Care: No Additional living arrangements comments: Lives with spouse in [place]. Additional occupation/education comments: [employer]. Spiritual care concerns: No Meds Home Medications and Allergies Home Medications Medication Instructions Recorded Confirmed Type finasteride 1 mg tablet (Propecia) 1 mg PO DAILY #90 tabs 03/28/22 Rx Allergies Allergy/AdvReac Type Severity Reaction Status Date / Time No Known Allergies Allergy Verified 03/27/22 15:34 Vital Signs Vital Signs - 24 hr 04/04/22 14:07 04/04/22 19:04 04/04/22 20:55 Temperature 36.4 C 36.6 C Pulse Rate 100 93 Respiratory Rate 16 18 Blood Pressure 150/79 H 157/80 H Pulse Oximetry 98 99 Oxygen Delivery Room Air 04/04/22 23:08 04/05/22 03:10 04/05/22 07:50 Temperature 36.6 C 36.2 C L Pulse Rate 85 92 Respiratory Rate 17 18 Blood Pressure 137/71 118/82 Pulse Oximetry 99 98 Oxygen Delivery Room Air 04/05/22 10:36 Temperature 36.4 C Pulse Rate 81 Respiratory Rate 16 Blood Pressure 117/62 Pulse Oximetry 100 Oxygen Delivery Results Labs 04/05/22 04:57 04/05/22 04:57 Labs: Abnormal lab results 04/05/22 04/05/22 Range/Units 04:57 04:57 WBC 15.1 H (4.5-10.0) K/mm3 RBC 3.14 L (4.6-6.20) M/mm3 Hgb 9.6 L (14.0-18.0) g/dL Hct 29.6 L (42.0-52.0) % Chloride 108 H (98-107) mmol/L Anion Gap 4 L (8-16) mmol/L BUN 30 H (9-20) mg/dL Creatinine 1.60 H (0.7-1.3) mg/dL Estimated GFR 42 L (59 - ) Glucose 171 H (65-110) mg/dL Calcium 7.6 L (8.4-10.2) mg/dL Phosphorus 2.1 L (2.5-4.5) mg/dL AST 76 H (17-59) U/L ALT 59 H (6-50) U/L Total Protein 6.0 L (6.3-8.2) g/dL Albumin 2.8 L (3.5-5.1) g/dL H & H 03/27/22 03/28/22 03/28/22 Range/Units 10:43 04:56 11:07 Hgb 13.7 L 14.1 13.7 L (14.0-18.0) g/dL Hct 41.4 L 41.8 L 40.2 L (42.0-52.0) % 03/29/22 03/30/22 03/31/22 Range/Units 04:44 04:36 06:38 Hgb 14.0 12.9 L 11.9 L (14.0-18.0) g/dL Hct 41.7 L 38.8 L 35.1 L (42.0-52.0) % 04/01/22 04/02/22 04/03/22 Range/Units 04:22 05:53 05:10 Hgb 11.8 L 10.8 L 9.1 L (14.0-18.0) g/dL Hct 36.2 L 33.2 L 27.9 L (42.0-52.0) % 04/04/22 04/05/22 Range/Units 05:04 04:57 Hgb 10.4 L 9.6 L (14.0-18.0) g/dL Hct 32.3 L 29.6 L (42.0-52.0) % Coagulation 03/27/22 Range/Units 10:43 INR 1.0 All other labs normal.
--- NOTE | 2022-04-05 13:14 | PM.PNORT ---
Progress Note: A&P Assessment and Plan (1) Bilateral knee effusions: Code(s): M25.461 - Effusion, right knee; M25.462 - Effusion, left knee Status: Acute Assessment and Plan: 2 days s/p aspiration/injection. Patient notes continued improvement. Minimal pain today. Swelling/redness improved. May continue with weight-bearing as tolerated. Discharge when medically stable. Follow up as needed. (2) Pseudogout of knee: Qualifiers: Laterality: unspecified laterality Qualified Code(s): M11.269 - Other chondrocalcinosis, unspecified knee Code(s): M11.269 - Other chondrocalcinosis, unspecified knee Status: Acute Subjective Subjective Date/Time Seen: 04/05/22 13:14 Principal diagnosis: Bilateral knee effusion Interval history: Patient reports continued improvement in knee pain s/p aspiration/injection. Upset about diet currently. Would like to advanced to a regular diet. Review of Systems Review of Systems: All systems reviewed & are unremarkable except as noted in HPI and below Exam Const: General: healthy appearing; No in distress or confusion Orientation/consciousness: oriented to person, oriented to place, oriented to time and No confusion HENMT: Head: normal to inspection, normocephalic and atraumatic Eyes: Conjunctivae: conjunctivae normal Sclera: sclerae normal Neck: Neck: supple and nontender Resp: Effort & Inspection: normal respiratory effort and no audible wheezes Cardio: Rate: regular rate Rhythm: regular rhythm Skin: General skin exam: no rashes or lesions noted Neuro: General: oriented to person, oriented to place, oriented to time and No confusion Extrem: Right upper extremity: normal to inspection Left upper extremity: normal to inspection Right lower extremity: hip/thigh Details: normal ROM; no tenderness, knee Details: tenderness (anterior and medial joint line) Location: of the medial joint line (moderate) and of the pre-patellar area (moderate), swelling (peripatellar and medial joint ), abnormal ROM (active range of motion -10 degrees, 110 degrees flexion) Details: pain with active ROM during Details: in extension and in flexion, knee ligament exam normal Details: anterior drawer test normal, posterior drawer test normal, valgus stress test normal and Thong?s test normal, knee ligament exam abnormal Details: varus stress test normal (painful medial) and Johan's Test Details: positive medially and foot Details: normal capillary refill, toes with normal ROM, vascular exam Details: dorsalis pedis pulse present and motor-sensory exam Details: light-touch normal; no tenderness; no edema Left lower extremity: normal to inspection, normal capillary refill, hip/thigh Details: normal ROM; no tenderness, knee Details: tenderness Location: of the patella, of the medial joint line and of the infrapatellar area, swelling Location: of the infrapatellar area (mild), abnormal ROM (active extension -10, flexion 110), knee ligament exam normal Details: anterior drawer test normal, posterior drawer test normal, valgus stress test normal, varus stress test normal and Thong's test normal, Johan's Test Details: negative laterally and positive medially and crepitus Location: at the patella (mild) and foot Details: toes with normal ROM, vascular exam Details: dorsalis pedis pulse present and normal capillary refill and motor-sensory exam light-touch normal; no tenderness Psych: Affect: normal affect Objective Data Vital Signs Vital Signs: Vital Signs - 24 hr 04/04/22 14:07 04/04/22 19:04 04/04/22 20:55 Temperature 36.4 C 36.6 C Pulse Rate 100 93 Respiratory Rate 16 18 Blood Pressure 150/79 H 157/80 H Pulse Oximetry 98 99 Oxygen Delivery Room Air 04/04/22 23:08 04/05/22 03:10 04/05/22 07:50 Temperature 36.6 C 36.2 C L Pulse Rate 85 92 Respiratory Rate 17 18 Blood Pressure 137/71 118/82 Pulse Oximetry 99 98 Oxygen Delivery Room Air 03/25
--- NOTE | 2022-04-05 14:10 | P.PNIM_ITS ---
Progress Note: A&P Assessment and Plan (1) Encephalopathy: Code(s): G93.40 - Encephalopathy, unspecified Status: Acute Assessment and Plan: Patient comes in for AMS, no prior medical history. He is normally A/O x 4 but has had a few fleeting moments of confusion over the past month. He has not had any recent falls or trauma. 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 MRI brain negative for any acute stroke. * carotid doppler: no hemodynamically significant stenosis except increased velocities bilateral external carotid arteries * LP 03/28/22: Clear/colorless. WBC 3, RBC 82, Glucose 69, TP 158. OP 14cm H2O. * Empiric ceftriaxone, vancomycin and ampicillin for meningitis * Empiric Acyclovir started. HSV, VZV and EBV CSF negative. Acyclovir stopped. * RPR, HIV, and Hepatitis panel negative. Ehrlichia negative peer. Rickettsia pending * CTA of the head and neck unable to be done at this time given renal failure * Fungal smear negative. BCx NGTD. UCx negative. CSF Cx NGTD. * Neuro consulted and recommendations appreciated * Differential includes hypertensive encephalopathy vs occult infection vs autoimmune vs paraneoplastic vs vasculitis vs zoonotic (Brucellosis) vs. listeria or TB encephalomeningitis. * Clinically better. Now with bilateral knee pseudo-gout felt to be red bain and unrelated to underlying main disease process. 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 Continue Ampicillin. Will need 3 weeks of total treatment with IV ampicillin if this is but with going to treat. CSF studies however not suggestive of bacterial meningitis. CSF fluid culture has also been negative. * Continue fall precautions and neuro checks * Elevated WBC to 20K but trending down now. Fever waning as well. * Continue low dose Seroquel * Nystatin for possible thrush; remove Prater; continue PT/OT; move to medical * Discussed with Neuro about de-escalating abx once knee cx negative (no answer when called) * Has been put on [facility] transfer list neck Will stop the IV vancomycin this is is day 7 of treatment. Will continue ceftriaxone but lower the dose as bacterial meningitis is not wall spected depending on the initial CSF studies. 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 Two more weeks to complete 3 weeks treatment Will also continue ceftriaxone for possible lyme meningitis. Lyme panel is been pending. Will switch to doxycycline oral at discharge for 2 more complete cour se (2) Knee pain: Qualifiers: Laterality: bilateral Code(s): M25.569 - Pain in unspecified knee Status: Acute Assessment and Plan: Bilateral tender and edematous knees that are erythematous and warm. Cell count reviewed from both arthrocentesis. Crystals showing CPPD. Knee pain and redness related to pseudogout. Ortho consulted. (3) Elevated blood pressure reading: Code(s): R03.0 - Elevated blood-pressure reading, without diagnosis of hypertension Status: Acute Assessment and Plan: On admission the patient's blood pressure 225/118. * Patient given hydralazine 10 mg and blood pressure declined to 102/89. * Patient seen by Cardiology and due to precipitous drop with IV hydralazine it was advised that IV hydralazine be avoided. * Patient given 5 mg amlodipine daily but SBP dropped to 90 so Norvasc stopped * Blood pressures more stable now. Follow (4) Carotid bruit: Code(s): R09.89 - Other specified symptoms and signs involving the ci
--- NOTE | 2022-04-05 14:10 | PM.IMPN ---
Progress Note: A&P Assessment and Plan (1) Encephalopathy: Code(s): G93.40 - Encephalopathy, unspecified Status: Acute Assessment and Plan: Patient comes in for AMS, no prior medical history. He is normally A/O x 4 but has had a few fleeting moments of confusion over the past month. He has not had any recent falls or trauma. 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 MRI brain negative for any acute stroke. carotid doppler: no hemodynamically significant stenosis except increased velocities bilateral external carotid arteries LP 03/28/22: Clear/colorless. WBC 3, RBC 82, Glucose 69, TP 158. OP 14cm H2O. Empiric ceftriaxone, vancomycin and ampicillin for meningitis Empiric Acyclovir started. HSV, VZV and EBV CSF negative. Acyclovir stopped. RPR, HIV, and Hepatitis panel negative. Ehrlichia negative peer. Rickettsia pending CTA of the head and neck unable to be done at this time given renal failure Fungal smear negative. BCx NGTD. UCx negative. CSF Cx NGTD. Neuro consulted and recommendations appreciated Differential includes hypertensive encephalopathy vs occult infection vs autoimmune vs paraneoplastic vs vasculitis vs zoonotic (Brucellosis) vs. listeria or TB encephalomeningitis. Clinically better. Now with bilateral knee pseudo-gout felt to be red bain and unrelated to underlying main disease process. 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 Continue Ampicillin. Will need 3 weeks of total treatment with IV ampicillin if this is but with going to treat. CSF studies however not suggestive of bacterial meningitis. CSF fluid culture has also been negative. Continue fall precautions and neuro checks Elevated WBC to 20K but trending down now. Fever waning as well. Continue low dose Seroquel Nystatin for possible thrush; remove Prater; continue PT/OT; move to medical Discussed with Neuro about de-escalating abx once knee cx negative (no answer when called) Has been put on [facility] transfer list neck Will stop the IV vancomycin this is is day 7 of treatment. Will continue ceftriaxone but lower the dose as bacterial meningitis is not suspected depending on the initial CSF studies. 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 Two more weeks to complete 3 weeks treatment Will also continue ceftriaxone for possible lyme meningitis. Lyme panel is been pending. Will switch to doxycycline oral at discharge for 2 more complete course (2) Knee pain: Qualifiers: Laterality: bilateral Code(s): M25.569 - Pain in unspecified knee Status: Acute Assessment and Plan: Bilateral tender and edematous knees that are erythematous and warm. Cell count reviewed from both arthrocentesis. Crystals showing CPPD. Knee pain and redness related to pseudogout. Ortho consulted. (3) Elevated blood pressure reading: Code(s): R03.0 - Elevated blood-pressure reading, without diagnosis of hypertension Status: Acute Assessment and Plan: On admission the patient's blood pressure 225/118. Patient given hydralazine 10 mg and blood pressure declined to 102/89. Patient seen by Cardiology and due to precipitous drop with IV hydralazine it was advised that IV hydralazine be avoided. Patient given 5 mg amlodipine daily but SBP dropped to 90 so Norvasc stopped Blood pressures more stable now. Follow (4) Carotid bruit: Code(s): R09.89 - Other specified symptoms and signs involving the circulatory and respiratory systems Status: Acute Assessment and Plan: Carotid doppler with no hemodynamically significant internal carotid stenosis. Continue ASA (5) Elevated troponin: Code(s): R77.8 - Other specified abnormalities of plasma proteins Status: Acute Assessment and Plan: Troponin was mild
[2022-04-05 15:02] VITALS: BP 161/65; PULSE 86; RESP 16; TEMP 36.7; O2SAT 100
[2022-04-05] MEDS: ALPRAZolam (*CRX) 0.5 MG TABLET PO (15:44)
[2022-04-05 18:04] LABS: Complement Total CH50 59 U/mL (31-60)
[2022-04-05 18:37] VITALS: BP 154/62; PULSE 82; RESP 16; TEMP 36.7; O2SAT 99
[2022-04-05 20:00] VITALS: BP 162/86; PULSE 88; RESP 20; TEMP 37; O2SAT 95
[2022-04-05] MEDS: QUEtiapine FUMARATE 25 MG TABLET PO (21:25)
[2022-04-06] VITALS: BP 176/83; PULSE 85; RESP 18; TEMP 36.8; O2SAT 99
[2022-04-06 01:33] LABS: ANCA Screen Negative (Negative)
[2022-04-06] MEDS: AMPICILLIN 2 GM/NS 100 ML 2 GM/100 ML BAG IVPB ×3 (02:49→13:50)
[2022-04-06 04:00] VITALS: BP 163/83; PULSE 84; RESP 20; TEMP 36.5; O2SAT 100
[2022-04-06 04:07] LABS: Basophils Percent Auto 0.2 % (0.2-1.2); Eosinophils Percent Auto 0.1 % (0-4.4); Hematocrit 30.6 % (42.0-52.0); Hemoglobin 9.9 g/dL (14.0-18.0); Immature Granulocyte Absolute 0.32 K/mm3 (0.00-0.031); Immature Granulocyte Percent A 2.3 % (0-0.5); Lymphocytes Absolute Auto 1.36 K/mm3 (0.9-3.2); Lymphocytes Percent Auto 9.9 % (18.3-44.2); Mean Corpuscular HGB Conc 32.4 g/dl (32-36); Mean Corpuscular Hemoglobin 30.8 pg (26-34); Mean Corpuscular Volume 95.3 fl (80-100); Mean Platelet Volume 10.1 fl (7.4-10.4); Monocytes Absolute Auto 1.3 K/mm3 (0.1-0.6); Monocytes Percent Auto 9.2 % (2.6-8.5); Neutrophils Absolute Auto 10.8 K/mm3 (1.3-6.7); Neutrophils Percent Auto 78.3 % (45.5-73.1); Platelet Count Result 329 k/mm3 (150-375); Red Blood Count 3.21 M/mm3 (4.6-6.20); White Blood Count 13.8 K/mm3 (4.5-10.0)
[2022-04-06 05:22] LABS: Alanine Aminotransferase 83 U/L (6-50); Alkaline Phosphatase 71 U/L (38-126); Anion Gap 2 mmol/L (8-16); Aspartate Amino Transferase 69 U/L (17-59); Bilirubin,Total 0.2 mg/dL (0.2-1.3); Blood Urea Nitrogen 38 mg/dL (9-20); Calcium 7.9 mg/dL (8.4-10.2); Carbon Dioxide 27 mmol/L (22-30); Chloride 108 mmol/L (98-107); Estimated CRCL calculation 35 ml/min; Estimated Glomerular Filt Rate 42; Glucose 138 mg/dL (65-110); Magnesium 2.1 mg/dL (1.6-2.3); Potassium 4.2 mmol/L (3.4-5.0); Sodium 137 mmol/L (137-145)
[2022-04-06] MEDS: CENTRAL LINE FLUSH 10 ML IV PUSH ×2 (06:04→13:41)
[2022-04-06 08:00] VITALS: BP 154/88; PULSE 78; RESP 18; TEMP 36.3; O2SAT 100
--- NOTE | 2022-04-06 09:03 | PCSTNOTE ---
Please refer to the Modified Barium Swallow Evaluation in the EMR.
[2022-04-06] MEDS: NYSTATIN 100,000 UNITS/ML SUSP 5 ML ORAL.SUSP PO ×2 (09:54→13:41)
[2022-04-06] MEDS: ASPIRIN 81 MG ENTERIC TABLET PO (09:54)
[2022-04-06] MEDS: cefTRIAXone 2 GM in SODIUM CHLORIDE 0.9% IV 100 ML 200 ML IVPB (10:51)
[2022-04-06 12:00] VITALS: BP 98/70; PULSE 86; RESP 18; TEMP 37; O2SAT 100
[2022-04-06 13:47] VITALS: BP 155/77
--- NOTE | 2022-04-06 14:25 | PM.DS ---
DS: Admitting Diagnosis Discharge Date 04/06/2022 Admitting Diagnosis Altered mental status DS: Discharge Diagnosis Discharge Diagnosis (1) Encephalopathy: Code(s): G93.40 - Encephalopathy, unspecified Status: Acute (2) Knee pain: Qualifiers: Laterality: bilateral Code(s): M25.569 - Pain in unspecified knee Status: Acute (3) Elevated blood pressure reading: Code(s): R03.0 - Elevated blood-pressure reading, without diagnosis of hypertension Status: Acute (4) Carotid bruit: Code(s): R09.89 - Other specified symptoms and signs involving the circulatory and respiratory systems Status: Acute (5) Elevated troponin: Code(s): R77.8 - Other specified abnormalities of plasma proteins Status: Acute (6) Renal failure: Code(s): N19 - Unspecified kidney failure Status: Acute DS: Summary Hospital Course Hospital Course: # Acute Encephalopathy: Patient comes in for AMS, no prior medical history. He is normally A/O x 4 but has had a few fleeting moments of confusion over the past month.? He has not had any recent falls or trauma. 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 Head CT negative x 2. MRI brain negative for any acute stroke. carotid doppler: no hemodynamically significant stenosis except increased velocities bilateral external carotid arteries LP 03/28/22: Clear/colorless. WBC 3, RBC 82, Glucose 69,?TP 158. OP 14cm H2O. Empiric ceftriaxone, vancomycin and ampicillin for meningitis was started Empiric Acyclovir started for viral meningitis. HSV, VZV and EBV CSF negative. Acyclovir stopped. RPR, HIV, and Hepatitis panel negative.? Ehrlichia negative.? Rickettsia negative CTA of the head and neck unable to be done at this time given renal failure Fungal smear negative. BCx NGTD. UCx negative. CSF Cx NGTD. Neuro consulted and recommendations appreciated Differential includes hypertensive encephalopathy vs occult infection vs autoimmune vs paraneoplastic vs vasculitis vs zoonotic (Brucellosis) vs. listeria or TB encephalomeningitis. 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 Family state that she can carry listeria. He was empirically treated for this goal initial lumbar puncture was not suggestive of any bacterial meningitis. Discussed with also neurologist. Treatment with IV for 3 weeks total course. He received 1 week of IV ampicillin during the hospital stay. Arrangements for 2 more weeks of ampicillin was done which will be given with the help of home health. Continue fall precautions and neuro checks Elevated WBC to 20K but trending down now. Fever waning as well. Continue low dose Seroquel He was placed on [facility] transfer list however opted was not available and showed clinical improvement hence deferred. Other possibility is Lyme meningitis. The Lyme panel was pending by the time of discharge. Has been on ceftriaxone IV. Given still pending resolves plan to switch to doxycycline at discharge for 2 more weeks course to complete the therapy. # bilateral knee pain: Bilateral tender and edematous knees that are erythematous and warm. Cell count reviewed from both arthrocentesis. Crystals showing CPPD. Knee pain and redness related to pseudogout. Ortho consulted.? Status post arthrocentesis x2 for Orthopedics. Cultures been negative. Does not seem to be infective/septic knee. Likely related to pseudogout. # hypertension: On admission the patient's blood pressure 225/118.? Patient given hydralazine 10 mg and blood pressure declined to 102/89. Patient seen by Cardiology and due to precipitous drop with IV hydralazine it was advised that IV hydralazine be avoided. Patient given 5 mg amlodipine daily but SBP dropped to 90 so Norvasc stopped Blood pressures unstable when no further blood pressure medication were used. Due to intolerance as noted above # Carotid bruit: Carotid doppler with no hemodyn
[2022-04-06 22:41] LABS: Strep DNASE B Antibody <95 U/mL (<301)
[2022-04-18 14:27] LABS: Specimen Source CSF
== END 2022-04-06 15:04 | disposition home health service (06) | DRG 78 ==
LOC: ANHED 11:33 → ANHIMU 13:49 → ANH2MED 04-03 16:39
PROVIDERS: Internal Medicine; Internal Medicine Critical Care Medicine; Physician Assistant; Student in an Organized Health Care Education/Training Program; Admitting Provider Student in an Organized Health Care Education/Training Program; Emergency Provider Emergency Medicine; PCP Physician Assistant Medical; Visit Provider Internal Medicine
DX: I67.4 Hypertensive encephalopathy (principal); I16.1 Hypertensive emergency; N17.9 Acute kidney failure, unspecified; R44.3 Hallucinations, unspecified; M11.262 Other chondrocalcinosis, left knee; M11.261 Other chondrocalcinosis, right knee; R09.89 Other specified symptoms and signs involving the circulatory and respiratory systems; R77.8 Other specified abnormalities of plasma proteins; I12.9 Hypertensive chronic kidney disease with stage 1 through stage 4 chronic kidney disease, or unspecified chronic kidney disease; N18.30 Chronic kidney disease, stage 3 unspecified; K21.9 Gastro-esophageal reflux disease without esophagitis; N40.0 Benign prostatic hyperplasia without lower urinary tract symptoms; M17.0 Bilateral primary osteoarthritis of knee; Z90.49 Acquired absence of other specified parts of digestive tract
CPT/HCPCS: 20610; 20611; 36415; 36569; 62328; 70450; 70551; 71045; 71250; 72141; 72146; 73562; 74176; 76775; 80048; 80053; 80061; 80202; 81001; 82140; 82248; 82607; 82728; 82746; 82945; 82948; 83520; 83540; 83550; 83605; 83690; 83735; 84100; 84157; 84443; 84484; 85025; 85027; 85610; 85652; 85730; 86036; 86038; 86060; 86140; 86160; 86162; 86215; 86225; 86592; 86666; 86703; 86705; 86706; 86757; 86803; 87040; 87070; 87075; 87081; 87086; 87102; 87205; 87206; 87340; 87529; 87536; 87798; 87801; 89051; 89060; 92611; 93005; 93880; 96372; 96374; 96375; 96376; 97110; 97161; 97165; 97530; 97535; 99285; A9270; C1751; C8929; G0378; G0432; J0131; J0133; J0290; J0360; J0696; J1100; J1630; J2060; J3370; J7042; J7050; J7060

== ENCOUNTER 2022-04-07 15:04 | Emergency (ER) | payer MEDICARE, OTHER, SELFPAY ==
[2022-04-07 15:08] VITALS: BP 167/76; PULSE 71; RESP 20; TEMP 36.4; O2SAT 99
--- NOTE | 2022-04-07 15:16 | ED.GENADULT ---
HPI - General Adult General Chief complaint: Unspecified Stated complaint: picc line issue Time Seen by Provider: 04/07/22 15:16 Source: patient and family Limitations: no limitations History of Present Illness HPI narrative: 81 years old white male came to the emergency room by private car because was told by the home health nurse that his PICC line is occluded. Patient was discharged recently from our hospital antibiotic for 2 weeks. Currently patient denying any fever, chills, nausea, vomiting or any symptoms. Related Data Allergies Allergy/AdvReac Type Severity Reaction Status Date / Time No Known Allergies Allergy Verified 04/07/22 15:11 Review of Systems Review of Systems: All systems reviewed & are unremarkable except as noted in HPI and below PMFSH Past Medical History Medical History Benign prostatic hyperplasia Bilateral knee effusions Gastroesophageal reflux disease Pseudogout of knee Surgical History Surgical History History of appendectomy History of cholecystectomy History of excision of pilonidal cyst History of laser assisted in situ keratomileusis History of repair of right rotator cuff History of spinal surgery X4. Family History Family History Father Family history of pancreatic cancer, Onset Age: 70 Sibling Family history of coronary artery disease Social History Social History Social History: Surrogate medical decision maker: Julita Salazar, spouse. Code status: Full code. Smoking status: Never smoker Second hand tobacco smoke exposure: No Alcohol intake: never Substance use: never Substance use type: does not use Lack of Transportation: No Lack of Food: Never True Current Housing: I Have Housing Concerned About Future Housing: No Difficulty Paying Gas/Electric Bills: No Difficulty Paying for Meds: No Currently Unemployed: No Education: High School Diploma/GED Difficulty w/ Childcare or Family Care: No Additional living arrangements comments: Lives with spouse in [place]. Additional occupation/education comments: [employer]. Spiritual care concerns: No Exam Narrative: General appearance: Well-developed, well-nourished Chest and respiratory: Airway patent, no respiratory distress, no accessory muscle use Heart: Regular rate/rhythm Vascular: Normal peripheral pulses, normal capillary refill., PICC line at the right upper extremity, Musculoskeletal: Normal range of motion, Neurologic: Alert and oriented ?3, Course Vital Signs Vital signs: Vital Signs Temperature 36.4 C L 04/07/22 15:08 Pulse Rate 71 04/07/22 15:08 Respiratory Rate 20 04/07/22 15:08 Blood Pressure 167/76 H 04/07/22 15:08 Pulse Oximetry 99 04/07/22 15:08 Oxygen Delivery Room Air 04/07/22 15:08 Temperature 36.4 C L 04/07/22 15:08 Pulse Rate 71 04/07/22 15:08 Respiratory Rate 20 04/07/22 15:08 Blood Pressure 167/76 H 04/07/22 15:08 Pulse Oximetry 99 04/07/22 15:08 Oxygen Delivery Room Air 04/07/22 15:08 Medical Decision Making MDM Narrative Medical decision making narrative: Patient presents with occluded PICC line, Altace protocol was applied, within 2 hours the PICC line was patent, with good injection and aspiration. Patient feeling okay and ready to go home. Vital Signs Vital Signs: Vital Signs Temperature 36.4 C L 04/07/22 15:08 Pulse Rate 71 04/07/22 15:08 Respiratory Rate 20 04/07/22 15:08 Blood Pressure
[2022-04-07] MEDS: ALTEPLASE 2 MG VIAL (CATHFLO) IV PUSH (15:38)
== END 2022-04-07 18:03 | disposition home or self-care (01) ==
PROVIDERS: Emergency Provider Emergency Medicine; PCP Physician Assistant Medical
DX: T82.594A Other mechanical complication of infusion catheter, initial encounter (principal); N40.0 Benign prostatic hyperplasia without lower urinary tract symptoms; K21.9 Gastro-esophageal reflux disease without esophagitis; Z79.82 Long term (current) use of aspirin
CPT/HCPCS: 96374; 99284; J2997

== ENCOUNTER 2022-04-09 14:17 | Outpatient (RCR) | payer MEDICARE, OTHER, SELFPAY ==
[2022-04-09 14:59] LABS: Basophils Absolute Auto 0.1 K/mm3 (0.0-0.1); Basophils Percent Auto 0.5 % (0.2-1.2); Eosinophils Absolute Auto 0.1 K/mm3 (0-0.3); Eosinophils Percent Auto 0.7 % (0-4.4); Hematocrit 33.7 % (42.0-52.0); Hemoglobin 10.5 g/dL (14.0-18.0); Immature Granulocyte Absolute 0.95 K/mm3 (0.00-0.031); Immature Granulocyte Percent A 5.1 % (0-0.5); Lymphocytes Absolute Auto 2.03 K/mm3 (0.9-3.2); Lymphocytes Percent Auto 10.8 % (18.3-44.2); Mean Corpuscular HGB Conc 31.2 g/dl (32-36); Mean Corpuscular Hemoglobin 30.9 pg (26-34); Mean Corpuscular Volume 99.1 fl (80-100); Mean Platelet Volume 9.7 fl (7.4-10.4); Monocytes Absolute Auto 1.5 K/mm3 (0.1-0.6); Monocytes Percent Auto 7.7 % (2.6-8.5); Neutrophils Absolute Auto 14.1 K/mm3 (1.3-6.7); Neutrophils Percent Auto 75.2 % (45.5-73.1); Nucleated Red Blood Cells Perc 0.2 % (0.0-0.2); Platelet Count Result 483 k/mm3 (150-375); Red Cell Distribution Width 12.6 % (11.5-14.5); White Blood Count 18.8 K/mm3 (4.5-10.0)
[2022-04-09 15:08] LABS: Alanine Aminotransferase 68 U/L (6-50); Albumin Level 3.6 g/dL (3.5-5.1); Alkaline Phosphatase 64 U/L (38-126); Anion Gap 7 mmol/L (8-16); Aspartate Amino Transferase 37 U/L (17-59); Bilirubin,Total 0.6 mg/dL (0.2-1.3); Blood Urea Nitrogen 29 mg/dL (9-20); CRP 1.6 mg/dL (<1.0); Calcium 7.9 mg/dL (8.4-10.2); Carbon Dioxide 27 mmol/L (22-30); Chloride 107 mmol/L (98-107); Estimated Glomerular Filt Rate 45; Glucose 129 mg/dL (65-110); Potassium 4.4 mmol/L (3.4-5.0); Sodium 141 mmol/L (137-145)
[2022-04-09 16:01] LABS: Platelet Estimate Increased (Adequate); Schistocytes None Seen (NORMAL)
[2022-04-09 16:02] LABS: Hypochromasia 1+ (NORMAL)
== END 2022-07-08 23:59 | disposition home or self-care (01) ==
LOC: HOME HLTH 14:17
PROVIDERS: PCP Physician Assistant Medical; Visit Provider Physician Assistant Medical
DX: M25.462 Effusion, left knee (principal); M25.461 Effusion, right knee; M11.261 Other chondrocalcinosis, right knee; G93.40 Encephalopathy, unspecified
CPT/HCPCS: 80053; 85025; 86140

== ENCOUNTER 2023-05-14 09:12 | Outpatient (CLI) | payer MEDICARE, OTHER, SELFPAY | END 2023-05-14 09:13 | disposition home or self-care (01) | LOC: CHSLAB 09:16 | PROVIDERS: PCP Family Medicine; Visit Provider Specialist | DX: D48.5 Neoplasm of uncertain behavior of skin (principal) | CPT/HCPCS: 88305 ==

== ENCOUNTER 2023-12-13 08:02 | Emergency (ER) | payer MEDICARE, OTHER, SELFPAY ==
--- NOTE | 2023-12-13 08:17 | ED.CPR ---
HPI - CPR General Chief Complaint: Cardiac Arrest/CPR Stated Complaint: cardiac arrest Time Seen by Provider: 12/13/23 08:16 History of Present Illness HPI narrative: 83-year-old male with history of hypertension and chronic kidney disease presents as a CPR in progress via EMS. Patient had a witnessed cardiac arrest as household with this by his . Bystanders initially provided CPR prior to EMS arrival. Witnessed arrest occurred approximately 7:30 a.m. EMS arrived to seen and his initial metallurgist helper showed asystole. IO established, patient was intubated on scene with confirmatory capnography, Shen device was placed and continuous high quality CPR and ACLS protocol was followed by EMS staff. Seven rounds of epinephrine were given as well as a fluid bolus through the left tibial IO. Patient did have 1 episode of potential fine VFib early on requiring defibrillation 1 time but deteriorated to asystole throughout remaining pulse checks on seen and on route to the hospital. No additional medications were provided prior to arrival besides epinephrine. Patient was placed into a resuscitation [place] and continue CPR was continued by our team after receiving report from EMS. Related Data Home Medications Medication Instructions Recorded Confirmed cholecalciferol (vitamin D3) 50 50 mcg PO DAILY 07/22/23 11/26/23 mcg (2,000 unit) capsule amlodipine 5 mg tablet 5 mg PO DAILY 11/19/23 11/26/23 finasteride 1 mg tablet 1 mg PO DAILY 11/19/23 11/26/23 omega 7-rky-wul-fish oil 300 2 cap PO DAILY 11/19/23 11/26/23 mg-1,000 mg capsule (Fish Oil) pantoprazole 20 mg tablet,delayed 20 mg PO QAM 11/19/23 11/26/23 release Allergies Allergy/AdvReac Type Severity Reaction Status Date / Time No Known Allergies Allergy Verified 11/26/23 13:29 Review of Systems Review of Systems: ROS unobtainable: Yes unobtainable due to medical condition [facility] Past Medical History Medical History Acute sinusitis Arthritis Benign prostatic hyperplasia Gastroesophageal reflux disease HTN (hypertension) Hypertriglyceridemia URI (upper respiratory infection) Surgical History Surgical History History of appendectomy History of bilateral carpal tunnel release History of cholecystectomy History of excision of pilonidal cyst x2 History of laser assisted in situ keratomileusis History of repair of right rotator cuff History of spinal surgery X4. Family History Family History Father Family history of pancreatic cancer, Onset Age: 70 Sibling Family history of coronary artery disease Social History Social History Social History: Surrogate medical decision maker: Julita Salazar, spouse. Code status: Full code. Smoking status: Never smoker Second hand tobacco smoke exposure: No Alcohol intake: never Substance use: never Substance use type: does not use Do You Feel Safe in your Home?: Yes Lack of Transportation: No Lack of Food: Never True Current Housing: I Have Housing Concerned About Future Housing: No Difficulty Paying Gas/Electric Bills: No Difficulty Paying for Meds: No Currently Unemployed: No Education: High School Diploma/GED Difficulty w/ Childcare or Family Care: No Living arrangements: with family Additional living arrangements comments: Lives with spouse in [place]. Occupation/Education: retired Additional occupation/education comments: [employer]. Gender identity (if verbalized by the patient): Male Spiritual care concerns: No Exam Narrative: GENERAL: GCS 3, pupils fixed and dilated, mottling skin on bilateral lower extremities HEAD: [Normocephalic, atraumatic.] EYES: Pupils 4 mm dilated, fixed ENT: Endotracheal tub
== END 2023-12-13 11:30 | disposition expired ==
LOC: ANHED 08:28
PROVIDERS: Emergency Provider Student in an Organized Health Care Education/Training Program; PCP Physician Assistant Medical
DX: I46.9 Cardiac arrest, cause unspecified (principal); N18.9 Chronic kidney disease, unspecified; I12.9 Hypertensive chronic kidney disease with stage 1 through stage 4 chronic kidney disease, or unspecified chronic kidney disease; K21.9 Gastro-esophageal reflux disease without esophagitis
CPT/HCPCS: 92950; 99285; J0171